=== PATIENT | male | born 1935 | race Caucasian/White ===

== ENCOUNTER 2017-04-09 13:58 | Inpatient (IN) | payer OTHER ==
[~2017-04-09] VITALS: Ht 167.6 cm; Wt 82.1 kg
[~2017-04-09 13:58] MED LIST: ASPIRIN EC81 M1 PO; TRAMADOL50 MG PO
--- NOTE | 2017-04-09 14:51 | ED GENERAL ADULT ---
History of Present Illness General Chief Complaint: General Adult Stated Complaint: HARD TO UNDERSTAND PT "CANT HOLD ANYMORE" Source: patient Exam Limitations: poor historian, language barrier, physical impairment Vital Signs & Intake/Output Vital Signs & Intake/Output Vital Signs Date Time Temp Pulse Resp B/P B/P Pulse O2 O2 Flow FiO2 Mean Ox Delivery Rate 04/09 1754 86 18 101/58 97 Nasal 2.0L Cannula 04/09 1627 76 16 130/62 100 Room Air 2.0L 04/09 1525 75 16 139/96 99 Nasal 2.0L Cannula 04/09 1517 97.1 72 20 143/74 98 Nasal 2.0L Cannula 04/09 1510 98 Room Air 04/09 1450 97.5 79 18 178/94 97 Nasal 2.0L Cannula Allergies Coded Allergies: No Known Allergies (04/09/17) Reconcile Medications Albuterol Sulfate (Ventolin Hfa) 90 MCG HFA.AER.AD 1 PUF INH TID PRN RESP. ( Reported) Amlodipine Besylate 5 MG TABLET 1 TAB PO DAILY HEART/BP (Reported) Aspirin (Ecotrin*) 81 MG TABLET.DR 1 TAB PO DAILY HEART/BLOOD (Reported) Atorvastatin Calcium 10 MG TABLET 1 TAB PO DAILY CHOLESTEROL (Reported) Cyclosporine (Restasis) 0.05 % DROPERETTE 1 GTT OU BID BOTH EYES (Reported) Dorzolamide HCl/Timolol Maleat (Dorzolamide-Timolol Eye Drops) 22.3 MG-6.8 MG/ML DROPS 1 GTT OU BID BOTH EYES (Reported) Ergocalciferol (Vitamin D2) (Vitamin D2) 50,000 UNIT CAPSULE 1 CAP PO QW SUPPLEMENT (Reported) Naproxen 500 MG TABLET 1 TAB PO BID PAIN/INFLAMMATION (Reported) Oxycodone HCl/Acetaminophen (Oxycodone-Acetaminophen 10-325) 10 MG-325 MG TABLET 1 TAB PO 4XDAILY PRN PAIN (Reported) Triage Note: PT TO ED FOR C/C OF RECTAL BLEEDING THAT STARTED AROUND 1200 TODAY WITH BM EVERY 2 MINUTES. HX OF COLON CA. ALSO COMPLAINED OF ABD PAIN. PT VERY PALE, DIAPHORETIC, WENT UNRESPONSIVE FOR SHORT PERIOD WHEN IN WAITING ROOM. PT TAKEN IMMEDIATELY TO ROOM [address] DUNLAP. GROSS BLOOD, +GUAIAC PER DR. DUNLAP. Triage Nurses Notes Reviewed? yes Onset: Abrupt Duration: day(s): Timing: recent history HPI: 81-year-old man with bright red blood per rectum. 04/09/17 81-year-old male presents to the emergency department for the sudden onset of bright red blood per rectum today. According to the patient through food prep worker; he's had multiple episodes of bright red blood per rectum today. He also has lower abdominal pain. He had a near syncopal episode in the emergency department and was diaphoretic. The onset of symptoms as abrupt, the duration was today, the severity is significant; as his symptoms required him to come to the emergency department for care. He has a history of colon cancer and is status post resection. Past History Travel History Traveled to [place] past 21 day No Medical History Any Pertinent Medical History? 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 No Review of Systems Review of Systems Constitutional: Denies: fever. EENTM: Denies: visual changes. Respiratory: Denies: short of breath. Cardiovascular: Denies: chest pain. GI: Reports: abdominal pain, diarrhea, bloody stool. Genitourinary: Reports: no symptoms. Musculoskeletal: Reports: no symptoms. Skin: Reports: no symptoms. Neurological/Psychological: Reports: no symptoms. Hematologic/Endocrine: Reports: bleeding. Physical Exam Physical Exam General Appearance: alert, awake, anxious, moderate distress Head: atraumatic, normal appearance Eyes: Bilateral: normal appearance, PERRL, EOMI. Ears, Nose, Throat: normal pharynx, normal ENT inspection Neck: normal inspection, supple, full range of motion Respiratory: normal breath sounds, chest non-tender, no respiratory distress Cardiovascular: regular rate/rhythm Peripheral Pulses: 4+ radial (R), 4+ radial (L) Gastrointestinal: soft, non-tender Rectal: heme positive stool, gross bloody stool Back: decreased range of motion Extremities: normal inspection Neurologic/Psych: no motor/sensory deficits, awake, alert, oriented x 3 Skin: pallor Core Measures ACS in differential dx? Yes No ASA d/t Active Bleeding CVA/TIA Diagnosis: No Sepsis Present: No Sepsis Focused Exam Completed? No Progress Differential Diagnoses I considered the following diagnoses in my evaluation of the patient: [ Diverticulosis, coagulopathy, internal hemorrhoids, ischemic colitis] Plan of Care: Orders Procedure Date/time Status CBC WITHOUT DIFFERENTIAL 04/11 0000 Active Nothing by Mouth 04/10 B Active TROPONIN LEVEL 04/10 0500 Active PHOSPHORUS 04/10 0500 Active MAGNESIUM 04/10 0500 Active HEPATIC FUNCTION PANEL 04/10 0500 Active CBC WITHOUT DIFFERENTIAL 04/10 0500 Active CALCIUM 04/10 0500 Active BASIC ELECTROLYTES PLUS BUN&CR 04/10 0500 Active EKG 04/10 0500 Active LACTIC ACID 04/09 2120 Active TROPONIN LEVEL 04/09 2100 Active EKG 04/09 2100 Active BLOOD PRODUCT PICKUP 04/09 2043 Active Change service to 04/09 1951 Active VRE ACTIVE SURVIELLANCE 04/09 191 Active ACTIVE SURVEILLANCE NARES 04/09 1914 Active BLOOD PRODUCT PICKUP 04/09 1828 Active BLOOD PRODUCT PICKUP 04/09 1827 Active LEUKOCYTE POOR (PACKED CELLS) 04/09 1822 Active URINALYSIS 04/09 1821 Active LACTIC ACID 04/09 1820 Active Change service to 04/09 1818 Active CBC WITHOUT DIFFERENTIAL 04/09 1810 Complete Code Status 04/09 1809 Active LEUKOCYTE POOR (PACKED CELLS) 04/09 1755 Active Pathway - chart 04/09 1750 Active Patient Data 04/09 1739 Active ED Holding Orders 04/09 1738 Active Admit to inpatient 04/09 1738 Active Vital Signs 04/09 1738 Active Code Status 04/09 1738 Complete RAPID VIRAL INFLUENZA A 04/09 1653 Complete OXYGEN SETUP (GEN) 04/09 1453 Active Telemetry/Stock Taker 04/09 1453 Active TROPONIN LEVEL 04/09 1452 Complete PROTHROMBIN TIME 04/09 1452 Complete COMPREHENSIVE METABOLIC PANEL 04/09 1452 Complete CBC WITHOUT DIFFERENTIAL 04/09 1452 Complete EKG 04/09 1452 Active TYPE & SCREEN (NOT X-MATCH) 04/09 1452 Active EKG 04/09 1447 Active VTE Mechanical Prophylaxis 04/09 UNK Active Vital Signs 04/09 UNK Active MISTAKE 04/09 UNK Active Precautions 04/09 UNK Active Nursing Misc 04/09 UNK Active Intake & Output 04/09 UNK Active ECHOCARDIOGRAM 04/09 UNK Active Current Medications Sig/Mark Start time Last Medication Dose Stop Time Status Admin Atorvastatin Calcium 10 MG 1700 04/10 1700 CAN (Lipitor) Pantoprazole Sodium 40 MG DAILY 04/10 1000 UNVr (Protonix) Cyclosporine 1 GTT Q12 04/09 2200 AC (Restasis Ophth Emulsion) Dorzolamide HCl 1 GTT BID 04/09 2200 UNVr (Trusopt 2% 10 ML) Sodium Chloride 1,000 ML Q8H 04/09 1915 AC (Normal Saline 0.9%) Albuterol Sulfate 1 PUF TID PRN 04/09 1900 AC (Ventolin) Laboratory Tests 04/09/172034: Troponin I Pending 04/09/172034: Lactic Acid Pending 04/09/17 182: CBC w Diff NO MAN DIFF REQ, RBC 3.06 L, MCV 97.2 H, MCH 32.1 H, MCHC 33.1, RDW 14.2, MPV 8.2, Gran % 80.2 H, Lymphocytes % 10.5 L, Monocytes % 7.8, Eosinophils % 1.3, Basophils % 0.2, Absolute Granulocytes 13.7 H, Absolute Lymphocytes 1.8, Absolute Monocytes 1.3 H, Absolute Eosinophils 0.2, Absolute Basophils 0 04/09/17 1540: Anion Gap 8, Estimated GFR > 60, BUN/Creatinine Ratio 35.5 H, Glucose 87, Calcium 7.7 L, Total Bilirubin 0.5, AST 14 L, ALT 37, Alkaline Phosphatase 36, Troponin I < 0.01, Total Protein 4.8 L, Albumin 2.7 L, Globulin 2.1, Albumin/ Globulin Ratio 1.3, PT 11.9, INR 1.13 04/09/17 1453: CBC w Diff MAN DIFF ORDERED, RBC 4.33 L, MCV 96.9 H, MCH 31.8 H, MCHC 32.9 L , RDW 15.0 H, MPV 8.3, Gran % 80.8 H, Lymphocytes % 13.2 L, Monocytes % 4.8, Eosinophils % 1.2, Basophils % 0, Absolute Granulocytes 13.3 H, Segmented Neutrophils 76 H, Band Neutrophils 3, Absolute Lymphocytes 2.2, Lymphocytes 9 L, Monocytes 6, Absolute Monocytes 0.8 H, Eosinophils 3, Absolute Eosinophils 0.2, Absolute Basophils 0, Metamyelocytes 2 H, Myelocytes 1 H, Platelet Estimate VERIFIED BY SMEAR, Anisocytosis 1+ Microbiology 04/09 2019 UPPER RESP: Surveillance Culture - RECD 04/09 2019 GI: Surveillance Culture - RECD 04/09 1700 NASOPHARYN: Influenza Virus A & B Rapid Smear - COMP Initial ED EKG: NSR, nonspecific ST T wave chg Departure Departure Disposition: STILL A PATIENT Condition: Stable Clinical Impression Primary Impression: GI bleed Secondary Impressions: Near syncope Referrals: Cesar DWYER,Cameron Grayson (PCP/Family) Departure Forms: Customer Survey General Discharge Information Comments 04/09/17 6:17 PM 81-year-old male presented to the emergency department for near-syncope. Initial EKG revealed normal sinus rhythm no ischemic changes. His initial vital signs of been stable. He was guaiac positive. Dr. Riddle was paged. He agrees with the plan of care and admission to the ICU. Admission Note Spoke With: Ciera Cheng MD Documentation of Exam: Documentation of any treatments & extenuating circumstances including Concerns Regarding Discharge (functional status, medication knowledge or non-compliance, living conditions, etc.) that warrant an admission rather than observation: [The patient was admitted to the ICU for IV fluids, blood transfusion, cardiac monitoring, GI consultation, ICU level care] He was placed on oxygen in the ED and a tobacco curer.IV fluids were given. GI was notified. 2 units of packed red blood cells were given. He was transferred to the ICU. Critical Care Note Critical Care Note Critical Care Time: 30-74 min
[2017-04-09 15:01] LABS: ABSOLUTE BASOPHIL COUNT 0 /CUMM (0.0-0.2); ABSOLUTE EOSINOPHIL COUNT 0.2 /CUMM (0.0-0.7); ABSOLUTE GRANULOCYTE CT 13.3 /CUMM (1.4-6.5); ABSOLUTE LYMPH COUNT 2.2 /CUMM (1.2-3.4); ABSOLUTE MONOCYTE COUNT 0.8 /CUMM (0.10-0.60); BASOPHIL % 0 % (0.0-2.0); EOSINOPHIL % 1.2 % (0-5); GRANULOCYTE % 80.8 % (42.2-75.2); MEAN CORPUSCULAR HGB 31.8 PG (27.0-31.0); MEAN CORPUSCULAR HGB CONC 32.9 G/DL (33.0-37.0); MEAN CORPUSCULAR VOLUME 96.9 FL (80.0-94.0); MEAN PLATELET VOLUME 8.3 FL (7.4-10.4); PLATELET COUNT 340 /CUMM (130-400); RED BLOOD CELL CT 4.33 /CUMM (4.70-6.10); WHITE BLOOD CELL COUNT 16.5 /CUMM (4.8-10.8)
[2017-04-09 16:15] LABS: PT 11.9 SEC (9.4-12.5)
[2017-04-09] MEDS ORDERED: VITAMIN D250000 UNIT PO (16:17)
[2017-04-09] MEDS ORDERED: NAPROXEN500 M2 PO (16:18)
[2017-04-09] MEDS ORDERED: CLARITHROMYCIN500 M2 PO (16:18)
[2017-04-09] MEDS ORDERED: ATORVASTATIN CA10 M1 PO (16:18)
[2017-04-09] MEDS ORDERED: AMLODIPINE BESYL5 M1 PO (16:18)
[2017-04-09] MEDS ORDERED: VENTOLIN HFA18 GM INH (16:19)
[2017-04-09] MEDS ORDERED: OXYCODONE-ACET1 EAC1 PO (16:21)
[2017-04-09] MEDS ORDERED: DORZOLAMIDE-TIM10 ML OU (16:22)
[2017-04-09] MEDS ORDERED: RESTASIS1 EACH OU (16:22)
--- NOTE | 2017-04-09 16:23 | RADIOLOGY REPORT ---
EXAMINATION: XR PORTABLE CHEST CLINICAL INFORMATION: Syncope COMPARISON: 08/03/2014 TECHNIQUE: Portable frontal view of the chest was obtained. FINDINGS: Lungs are symmetrically expanded and clear. No pulmonary edema, consolidation, pleural effusion or pneumothorax. Cardiac silhouette is normal in size. The aortic arch is uncoiled and appears prominent (i.e., possible ectasia or aneurysmal dilatation of the aorta). The visualized bones are intact. IMPRESSION: 1. No acute pulmonary disease. 2. The aortic arch is uncoiled and is possibly dilated, but an accurate measurement of aorta size cannot be provided.
--- NOTE | 2017-04-09 17:41 | History & Physical ---
See Addendum Lashell García 04/09/17 3350: General Information and HPI MD Statement: I have seen and personally examined MIKA DOUGLASS and documented this H&P. The patient is a 81 year old M who presented with a patient stated chief complaint of [bright red blood per rectum]. Source of Information: patient, old records Exam Limitations: language barrier History of Present Illness: 81-year-old male with a past medical history of ? colon cancer 7 years ago ( status post resection), hypertension, hyperlipidemia, vitamin D insufficiency who presented to the ER with chief complaint of bright red bleeding per rectum that apparently started today. According to the patient he was in his usual state of health until this morning when around 11:30 AM he had an episode of upper abdominal pain that he describes as crampy in nature after which he had a bloody bowel movement. According to the patient he's had almost 10-15 episodes of bloody bowel movements since noon today. Denies any clots. He states that the bowel movements are associated with crampy abdominal pain that he grades as an 8 out of 10. He also endorses dizziness and lightheadedness every time he gets these episodes. He denies any chest pain, shortness of breath, nausea, hematemesis, fever, chills, recent history of weight loss. He's never had these episodes before. Of note he lives by himself and drove him self to the ED. Reportedly he had a near-syncopal episode in the ED and was diaphoretic. Apparently patient has a history of colon cancer ~ questionable 7 years ago and underwent surgery. Speaking with his son, reveals that he's not even sure if it was cancer to begin with. Patient is on a baby aspirin and is on NSAIDs for pain. According to the son, the patient saw his ? PCP this AM and was told that everything is fine and to go home. When Mr. Douglass returned home, he had 10-15 ? episodes of frankie bloody bowel movements. Patient denies any previous history of GI bleed. Allergies/Medications Allergies: Coded Allergies: No Known Allergies (04/09/17) Home Med list Albuterol Sulfate (Ventolin Hfa) 90 MCG HFA.AER.AD 1 PUF INH TID PRN RESP. ( Reported) Amlodipine Besylate 5 MG TABLET 1 TAB PO DAILY HEART/BP (Reported) Aspirin (Ecotrin*) 81 MG TABLET.DR 1 TAB PO DAILY HEART/BLOOD (Reported) Atorvastatin Calcium 10 MG TABLET 1 TAB PO DAILY CHOLESTEROL (Reported) Cyclosporine (Restasis) 0.05 % DROPERETTE 1 GTT OU BID BOTH EYES (Reported) Dorzolamide HCl/Timolol Maleat (Dorzolamide-Timolol Eye Drops) 22.3 MG-6.8 MG/ML DROPS 1 GTT OU BID BOTH EYES (Reported) Ergocalciferol (Vitamin D2) (Vitamin D2) 50,000 UNIT CAPSULE 1 CAP PO QW SUPPLEMENT (Reported) Naproxen 500 MG TABLET 1 TAB PO BID PAIN/INFLAMMATION (Reported) Oxycodone HCl/Acetaminophen (Oxycodone-Acetaminophen 10-325) 10 MG-325 MG TABLET 1 TAB PO 4XDAILY PRN PAIN (Reported) Compliance With Home Meds: UNKNOWN Past History Travel History Traveled to [place] past 21 day No Medical History Neurological: NONE EENT: NONE Cardiovascular: hyperlipidemia Respiratory: asthma Gastrointestinal: COLON CA Hepatic: NONE Renal: NONE Musculoskeletal: NONE Psychiatric: NONE Endocrine: NONE Blood Disorders: NONE Cancer(s): colon/rectal cancer 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 Home Who Do You Live With? self Smoking Status: Former Smoker ETOH Use: denies use Illicit Drug Use: denies illicit drug use Functional Ability ADLs Independent: dressing, eating, toileting, bathing. Ambulation: independent Review of Systems Review of Systems Constitutional: Reports: diaphoresis. Denies: chills, fever, weakness. EENTM: Denies: visual changes. Cardiovascular: Reports: syncope. Denies: chest pain, orthopena, palpitations. Respiratory: Denies: cough, hemoptysis, short of breath, wheezing. GI: Reports: abdominal pain, bloody stool, changes in stool. Denies: nausea, vomiting. Genitourinary: Denies: dysuria, frequency. Musculoskeletal: Reports: no symptoms. Neurological/Psychological: Denies: headache, numbness, tingling, tremors. Exam & Diagnostic Data Last 24 Hrs of Vital Signs/I&O Vital Signs Date Time Temp Pulse Resp B/P B/P Pulse O2 O2 Flow FiO2 Mean Ox Delivery Rate 04/09 1754 86 18 101/58 97 Nasal 2.0L Cannula 04/09 1627 76 16 130/62 100 Room Air 2.0L 04/09 1525 75 16 139/96 99 Nasal 2.0L Cannula 04/09 1517 97.1 72 20 143/74 98 Nasal 2.0L Cannula 04/09 1510 98 Room Air 04/09 1450 97.5 79 18 178/94 97 Nasal 2.0L Cannula Intake & Output 04/09 1600 04/09 0800 04/09 0000 Intake Total 1000 Output Total 1 Balance 999 Intake, IV 1000 Output, Stool 1 Patient 168 lb Weight Physical Exam General Appearance Alert, Oriented X3, Cooperative, No Acute Distress HEENT Atraumatic, EOMI, very dry muocus membranes, left pupil dilated and distorted Light reflex normal in right eye Neck Supple, No JVD, No LAD Cardiovascular Normal S1, Normal S2, tahcycardic; faint heart sounds Lungs Clear to Auscultation, Normal Air Movement Abdomen Normal Bowel Sounds, Soft, tenderness to palpation in right upper quadrant Neurological Normal Speech, Strength at 5/5 X4 Ext, Normal Tone, Sensation Intact, Cranial Nerves 3-12 NL, Reflexes 2+ Extremities b/l 1+ edema in lower extremities, with bruise along the medial aspect of his left ankle Last 24 Hrs of Labs/Miguel: Laboratory Tests 04/09/17 1826: CBC w Diff NO MAN DIFF REQ, RBC 3.06 L, MCV 97.2 H, MCH 32.1 H, MCHC 33.1, RDW 14.2, MPV 8.2, Gran % 80.2 H, Lymphocytes % 10.5 L, Monocytes % 7.8, Eosinophils % 1.3, Basophils % 0.2, Absolute Granulocytes 13.7 H, Absolute Lymphocytes 1.8, Absolute Monocytes 1.3 H, Absolute Eosinophils 0.2, Absolute Basophils 0 04/09/17 1540: Anion Gap 8, Estimated GFR > 60, BUN/Creatinine Ratio 35.5 H, Glucose 87, Calcium 7.7 L, Total Bilirubin 0.5, AST 14 L, ALT 37, Alkaline Phosphatase 36, Troponin I < 0.01, Total Protein 4.8 L, Albumin 2.7 L, Globulin 2.1, Albumin/ Globulin Ratio 1.3, PT 11.9, INR 1.13 04/09/17 1453: CBC w Diff MAN DIFF ORDERED, RBC 4.33 L, MCV 96.9 H, MCH 31.8 H, MCHC 32.9 L , RDW 15.0 H, MPV 8.3, Gran % 80.8 H, Lymphocytes % 13.2 L, Monocytes % 4.8, Eosinophils % 1.2, Basophils % 0, Absolute Granulocytes 13.3 H, Segmented Neutrophils 76 H, Band Neutrophils 3, Absolute Lymphocytes 2.2, Lymphocytes 9 L, Monocytes 6, Absolute Monocytes 0.8 H, Eosinophils 3, Absolute Eosinophils 0.2, Absolute Basophils 0, Metamyelocytes 2 H, Myelocytes 1 H, Platelet Estimate VERIFIED BY SMEAR, Anisocytosis 1+ Microbiology 04/09 1913 UPPER RESP: Surveillance Culture - COLB 04/09 1913 GI: Surveillance Culture - COLB 04/09 1699 NASOPHARYN: Influenza Virus A & B Rapid Smear - COMP Diagnostic Data EKG Results NSR, HR: 72; normal axis, no S-T changes CXR Results FINDINGS: Lungs are symmetrically expanded and clear. No pulmonary edema, consolidation, pleural effusion or pneumothorax. Cardiac silhouette is normal in size. The aortic arch is uncoiled and appears prominent (i.e., possible ectasia or aneurysmal dilatation of the aorta). The visualized bones are intact. IMPRESSION: 1. No acute pulmonary disease. 2. The aortic arch is uncoiled and is possibly dilated, but an accurate measurement of aorta size cannot be provided. Assessment/Plan Assessment: 81-year-old male with a past medical history of ? colon cancer status post resection (7 years ago), hypertension, hyperlipidemia, vitamin D insufficiency who presented to the ER with chief complaint of bright red bleeding per rectum that started today. He also had a near-syncopal episode in the ED and was diaphoretic. Vitals at the time of admission blood pressure 130/62, respiratory rate of 16, pulse 76, afebrile saturating 99% on 2 L of oxygen via nasal cannula. Labs pertinent for leukocytosis with a white blood cell count 16,000, macrocytic anemia with an H&H of 13.8/42.0 and an MCV of 96.9 with a platelet count 340, 000. Serum chemistries reveal a sodium of 142, potassium 3.9, bicarbonate of 27 , anion gap of 8, BUN 39 and creatinine of 1.1. Serum glucose 87. Calcium is 7.7 with an albumin of 2.7. First set of troponin <0.01. LFTs unremarkable with a temperature 0.5, AST/L2 14/37, alkaline phosphatase of 36. INR 1.13. Chest x-ray showed no acute pulmonary disease, aortic arch is uncoiled and its possibly dilated questioning aneurysmal dilatation. In the ER he received a bolus of normal saline (1.0 liter). EKG revealed NSR, HR: 72, normal axis, no ST-T changes. Assessment and Plan: Admit patient to ICU as during exam he had 5th epsidoe of frankie bleeding from rectum (approx about 200mls). No clots seen, patient also dropped his blood pressure to 90/57 from 139/96, and was tachycardic to 120 and felt diaphoretic when he had the episode. #Lower GI bleed most likely 2/2 ischemic colitis versus angiodysplasia (painful bleeding) vs diverticulitis - Maintain 2 large bore peripheral IVs. - Transfuse with 2 units of PRBC stat and a bolus of NS 1.0 liters with maintanence NS @ 125ml/hr - CTA of abdomen and pelvis to r/o ischemia, evidence of diverticular bleed. - GI / IRconsult pending results of the CTA - Hold ASA, NSAID's - F/U CBC q4-6 hrs. - Vitlas q1 hrs. - Call GI stat if gets hemodynaically unstable. - F/U LA # Near Syncope - Most likley 2/2 volume depletion from ABLA - Check osrthostats, hydrate with fluids. - Maintain on fall precautions. - R/O ACS with trop and EKG x3, and echo to r.o structural valvular abnormalities or any RWMA. # HTN - Hold BP meds fow now. # HLP - Hold statin given NPO stauts - DVT Prophylaxis - ALPs given bleeding - Diet - NPO for now in veiw of IR embolization or colosnocpy - Code Status - Full Code. - Spoke with patient's son Ross and updated him (cell phone - ) As Ranked By This Provider Problem List: 1. Lower GI bleed Core Measures/Misc (11/30) Acute Coronary Syndrome ACS Diagnosis: No Congestive Heart Failure Congestive Heart Failure Diagnosis No Cerebrovascular Accident CVA/TIA Diagnosis: No VTE (View Protocol) VTE Risk Factors Age>40 No Mechanical VTE Prophylaxis d/t N/A MechProphylax Ordered No VTE Pharm Prophylaxis d/t Bleeding (Active) Sepsis (View protocol) Sepsis Present: No Resident Review Statement Resident Statement: admitted by resident Rony DWYER, [facility] 04/09/178: Attending MD Review Statement Attending Statement Attending MD Statement: examined this patient, discuss w/resident/PA/[employer] ARCHITECT, agreed w/resident/PA/[employer] ARCHITECT, reviewed images, amended to note Attending Assessment/Plan: 81 yo Portugese speaking M with h/o HTN, glaucoma, blind in left eye, asthma, ? rectal cancer vs polyp s/p ?resection (7 yrs ago), is here for evaluation of sudden onset multiple episodes of bright red blood per rectum preceded by abdominal cramping. Blood clots+. Patient reports feeling dizzy, lightheaded. While in the ER waiting room, patient had a near-syncopal episode, was pale and diaphoretic. He had about 5-6 episodes of BRBPR while in the ER. He has not had similar episodes in the past. He denies chest pain, palpitations or dyspnea. He has no underlying cardiac history. He is on aspirin and takes naproxen for pain. He denies heartburn, melena or hematemesis. He most likely had his last colonoscopy 7 yrs ago but details are not available. Of note, patient was treated with clarithromycin and medrol dose pack (Mar 31) for ?possible bronchitis/ pneumonia. Vitals: afebrile, HR 70-80's, sats 99% on 2L, BP 139/96 --> 101/58 --> 94/54 --> being resuscitated with IV fluids and PRBC. Exam: AAO, pale, diaphoretic, sitting comfortably on the bed. Dry mucous membranes, Neck supple, Skin warm and dry, Chest b/l scattered rhonchi anteriorly, clear posteriorly, Heart S1S2 regular, ?murmur, Abd soft, right upper quadrant tenderness+, BS+. Labs: WBC 16.5, H/H 13.8/42 --> 9.8/29.7, bands 3, INR 1.13, bun 39, creat 1.1, lactic acid 2.0, Ca 7.7, trop neg. CXR: lungs clear, aortic arch is uncoiled and possibly dilated ?ectasia or aneurysmal dilatation of aorta. EKG: sinus rhythm, no acute changes. Assessment and plan: 1. Lower GI bleed most likely diverticular. Rule out angiodysplasia, colon cancer, polyp or ischemic colitis 2. Acute blood loss anemia 3. Near syncopal episode 4. Hypotension from acute blood loss and hypovolemia 5. Leukocytosis is reactive or due to recent steroid use. No focal signs of infection. 6. History of rectal cancer vs polyp 7. RUL lung nodule - needs outpatient follow up - Admit to ICU - TRC nebs - Vitals Q 1 hour - Monitor bleeding DE - Check orthostats - Type and cross match - CBC Q6 hourly, goal Hb > 8.0 - 2 large bore peripheral IV's - Transfuse 3 units PRBC stat, keep 2 on hold - IV fluid 2 L bolus, start maintenance 125/hr - CTA abdomen/ pelvis to localize site of bleeding. If positive would need IR embolization. - CTA chest to assess for aortic aneurysm - GI consult - CRCU consult in AM - Serial EKG and troponin to rule out ACS, Echo - If troponin elevated, consider Cardio consult - Hold aspirin, naproxen and other NSAIDs - Hold amlodipine and other BP meds - Check lactic acid, trend - NPO, ice chips ok - Check urinalysis, rule out infection. GI ppx IV protonix DVT Alps Full code (Contact patient's son - Ross [phone]) Update: CTA of abd/pelvis did not show any active bleeding point for IR embolization. So plan is for Golytely prep overnight and colonoscopy by GI in AM. TTS > 55 mins
--- NOTE | 2017-04-09 18:23 | Admission Certification ---
Admission Certification Certification Statement - As attending physician, I certify that at the time of - admission, based on clinical presentation, severity of - symptoms, need for further diagnostic testing and - therapeutic interventions, and risk of adverse outcomes - without in-hospital treatment, in my clinical assessment, - this patient requires an acute hospital stay for a minimum - of two nights or longer. I have also considered psychsocial - factors such as support system, advanced age, financial - issues, cognitive issues, and failed out-patient treatments, - past re-admission history, safety of patient, and lack of - compliance as applicable. Specific rationale supporting this admission is: Lower GI bleed, acute blood loss anemia.
[2017-04-09 18:52] LABS: ABSOLUTE BASOPHIL COUNT 0 /CUMM (0.0-0.2); ABSOLUTE EOSINOPHIL COUNT 0.2 /CUMM (0.0-0.7); ABSOLUTE GRANULOCYTE CT 13.7 /CUMM (1.4-6.5); ABSOLUTE LYMPH COUNT 1.8 /CUMM (1.2-3.4); ABSOLUTE MONOCYTE COUNT 1.3 /CUMM (0.10-0.60); BASOPHIL % 0.2 % (0.0-2.0); EOSINOPHIL % 1.3 % (0-5); GRANULOCYTE % 80.2 % (42.2-75.2); MEAN CORPUSCULAR HGB 32.1 PG (27.0-31.0); MEAN CORPUSCULAR HGB CONC 33.1 G/DL (33.0-37.0); MEAN CORPUSCULAR VOLUME 97.2 FL (80.0-94.0); MEAN PLATELET VOLUME 8.2 FL (7.4-10.4); PLATELET COUNT 320 /CUMM (130-400); RBC DISTRIBUTION WIDTH 14.2 % (11.5-14.5); WHITE BLOOD CELL COUNT 17.1 /CUMM (4.8-10.8)
[2017-04-09 19:02] LABS: HEMATOCRIT 29.7 % (42-52); RED BLOOD CELL CT 3.06 /CUMM (4.70-6.10)
--- NOTE | 2017-04-09 20:05 | CT SCAN REPORT ---
EXAMINATION: CT CHEST, ABDOMEN AND PELVIS WITH CONTRAST CLINICAL INFORMATION: Lower GI bleed. Pain. Concern for ischemic colitis or aortic aneurysm. COMPARISON: Same day chest radiograph. TECHNIQUE: Contiguous axial thin section helical images of the chest, abdomen and pelvis were performed following the administration of 120 mL of intravenous Optiray 350. The data set was reformatted in the coronal and sagittal planes and reviewed on an independent workstation. DLP: 1920 mGy-cm. FINDINGS: The heart is of normal size. There is no pericardial effusion. There is neither mediastinal, hilar nor axillary lymphadenopathy. There are no chest wall masses. There is a small hiatal hernia. There is mural plaque identified within the aortic arch. There is no aortic aneurysm demonstrable. The ascending thoracic aorta measures 3.7 cm in greatest sagittal AP dimension. There are no pulmonary arterial filling defects. There is calcified plaque within the infrarenal abdominal aorta. Review of lung windows demonstrates that there are neither pleural effusions nor pneumothoraces. There are no consolidations. Within the inferior right upper lobe on image [id number], there is a 2 mm benign appearing calcified pulmonary nodule. There are a few blebs present within each apex. The liver is of normal size and attenuation without focal lesions nor intrahepatic biliary ductal dilation. The patient is status post cholecystectomy. Surgical clips are present. The spleen, pancreas, adrenal glands are unremarkable. Both kidneys are of normal size and attenuation without hydronephrosis or nephrolithiasis. Following the administration of IV contrast, prompt symmetric nephrograms are displayed. There are bilateral renal cysts. There is bilateral perinephric stranding. There is no abdominal free fluid. There is neither mesenteric nor retroperitoneal lymphadenopathy. Normal unopacified loops of small and large bowel are identified. A normal appendix is identified. There is no pelvic free fluid. The urinary bladder is unremarkable. There is neither pelvic nor inguinal lymphadenopathy. Bone windows: Neither sclerotic nor lytic bone lesions are identified. Air is disc height loss at L4/L5. IMPRESSION: No aortic aneurysm demonstrable. Scattered areas of noncalcified and calcified plaque. No evidence for acute thoracic, abdominal nor pelvic inflammatory or infectious processes. Hiatal hernia. Status post cholecystectomy. 3-D reconstructions have not been performed at this time. This examination will be reviewed by an Interventional Radiologist and an addendum place.
[2017-04-09 21:00] VITALS: BP 94/54
--- NOTE | 2017-04-09 21:34 | Event Note ---
Event Note Event Note: CTA of abdomen Pelvis did not show evidence of ischemia or active bleeding after Dr. Riddle and I personally spoke with Dr. Bal. Plan is to do serial monitoring of CBC q4-6 hrs, transfuse with PRBCs and bowel prep with GoLYTELY. Patient is NPO excpet for ice chips in anticipation of colonoscopy tmrw. Please notify GI stat if patient becomes hemodynamically unstable and starts bleeding actively. Plan discussed with attending Dr. Uribe and Dr. Riddle.
[2017-04-09 22:00] VITALS: BP 89/55
[2017-04-09 23:00] VITALS: BP 82/40
[2017-04-10 01:17] LABS: ABSOLUTE BASOPHIL COUNT 0 /CUMM (0.0-0.2); ABSOLUTE EOSINOPHIL COUNT 0.2 /CUMM (0.0-0.7); ABSOLUTE GRANULOCYTE CT 12.8 /CUMM (1.4-6.5); ABSOLUTE LYMPH COUNT 1.6 /CUMM (1.2-3.4); ABSOLUTE MONOCYTE COUNT 1.1 /CUMM (0.10-0.60); BASOPHIL % 0.1 % (0.0-2.0); GRANULOCYTE % 82.1 % (42.2-75.2); HEMATOCRIT 31.7 % (42-52); MEAN CORPUSCULAR HGB 31.2 PG (27.0-31.0); MEAN CORPUSCULAR HGB CONC 33.7 G/DL (33.0-37.0); MEAN CORPUSCULAR VOLUME 92.8 FL (80.0-94.0); MEAN PLATELET VOLUME 8.6 FL (7.4-10.4); PLATELET COUNT 197 /CUMM (130-400); RBC DISTRIBUTION WIDTH 15.6 % (11.5-14.5); RED BLOOD CELL CT 3.42 /CUMM (4.70-6.10); WHITE BLOOD CELL COUNT 15.5 /CUMM (4.8-10.8)
[2017-04-10 07:47] LABS: ABSOLUTE BASOPHIL COUNT 0 /CUMM (0.0-0.2); ABSOLUTE EOSINOPHIL COUNT 0.2 /CUMM (0.0-0.7); ABSOLUTE GRANULOCYTE CT 12.3 /CUMM (1.4-6.5); ABSOLUTE LYMPH COUNT 1.4 /CUMM (1.2-3.4); BASOPHIL % 0.1 % (0.0-2.0); GRANULOCYTE % 82.8 % (42.2-75.2); HEMATOCRIT 32.8 % (42-52); MEAN CORPUSCULAR HGB 30.9 PG (27.0-31.0); MEAN CORPUSCULAR HGB CONC 33.6 G/DL (33.0-37.0); MEAN CORPUSCULAR VOLUME 91.9 FL (80.0-94.0); MEAN PLATELET VOLUME 8.8 FL (7.4-10.4); PLATELET COUNT 156 /CUMM (130-400); RBC DISTRIBUTION WIDTH 15.7 % (11.5-14.5); RED BLOOD CELL CT 3.57 /CUMM (4.70-6.10); WHITE BLOOD CELL COUNT 14.9 /CUMM (4.8-10.8)
--- NOTE | 2017-04-10 07:51 | PN- Resident CRCU ---
Objective Vital Signs & I&O Last 8 Hrs of Vitals and I&O: Intake & Output 04/10 0800 Intake Total 3550 Output Total 1375 Balance 2175 Intake, Blood 350 Product Intake, IV 1400 Intake, Oral 1800 Output, Stool 975 Output, Urine 400 Exam General Appearance: no apparent distress
[2017-04-10 08:00] VITALS: BP 108/60
--- NOTE | 2017-04-10 08:22 | Cons- CRCU ---
Mars Medina 04/10/17 0822: General Information and HPI Consulting Request Date of Consult: 04/10/17 Requested By: Dr. 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 Asthma/COPD, HTN came in to the ER w/ a chief concern of brbpr that began on the day of presentation. While he was in the ER, he continued to have several episodes of brbpr with associated dizziness, and abdominal discomfort(cramping pain, as per the pt). He also has a h/o frequent NSAID use for arthritis. At the time of presentation, he was afebrile, and HR ranged around 80s, but his BP dropped precipituously, requiring several units of PRBC transfusion. There was also a drop in H&H from the time of presentation, 13.5-->9.8 in a few hours, and unfortunately he only received one bag of NS while in the ED. CTA which did not reveal any obvious bleeding source. GI was consulted who recemmended prepping for colonoscopy in the am, while stabilizing the pt. At that time, diverticular bleed was considered in differential. Ischemic bowel was ruled out. He was transfered to the ICU, and was watched closely. He did not have any chest pain, shortness of breath, or palpitations. No pedal edema, no urinary difficulties. Allergies/Medications Allergies: Coded Allergies: No Known Allergies (04/09/17) Home Med List: Albuterol Sulfate (Ventolin Hfa) 90 MCG HFA.AER.AD 1 PUF INH TID PRN RESP. ( Reported) Amlodipine Besylate 5 MG TABLET 1 TAB PO DAILY HEART/BP (Reported) Aspirin (Ecotrin*) 81 MG TABLET.DR 1 TAB PO DAILY HEART/BLOOD (Reported) Atorvastatin Calcium 10 MG TABLET 1 TAB PO DAILY CHOLESTEROL (Reported) Cyclosporine (Restasis) 0.05 % DROPERETTE 1 GTT OU BID BOTH EYES (Reported) Dorzolamide HCl/Timolol Maleat (Dorzolamide-Timolol Eye Drops) 22.3 MG-6.8 MG/ML DROPS 1 GTT OU BID BOTH EYES (Reported) Ergocalciferol (Vitamin D2) (Vitamin D2) 50,000 UNIT CAPSULE 1 CAP PO QW SUPPLEMENT (Reported) Naproxen 500 MG TABLET 1 TAB PO BID PAIN/INFLAMMATION (Reported) Oxycodone HCl/Acetaminophen (Oxycodone-Acetaminophen 10-325) 10 MG-325 MG TABLET 1 TAB PO 4XDAILY PRN PAIN (Reported) Past History Travel History Traveled to [place] past 21 day No Medical History Neurological: NONE EENT: NONE Cardiovascular: hyperlipidemia Respiratory: asthma Gastrointestinal: COLON CA Hepatic: NONE Renal: NONE Musculoskeletal: NONE Psychiatric: NONE Endocrine: NONE Blood Disorders: NONE Cancer(s): colon/rectal cancer 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 Home Who Do You Live With? self Smoking Status: Former Smoker ETOH Use: denies use Illicit Drug Use: denies illicit drug use Functional Ability ADLs Independent: dressing, eating, toileting, bathing. Ambulation: independent Exam & Diagnostic Data Last 24 Hrs of Vital Signs/I&O Vital Signs Date Time Temp Pulse Resp B/P B/P Pulse O2 O2 Flow FiO2 Mean Ox Delivery Rate 04/10 0800 97 Nasal 2.0L Cannula 04/10 0800 98.8 78 18 108/60 97 Nasal 2.0L Cannula 04/10 0418 99 Nasal 2.0L Cannula 04/10 0000 99 Nasal 2.0L Cannula 04/09 2300 97.4 79 18 82/40 99 Nasal 2.0L Cannula 04/09 2200 99 Nasal 2.0L Cannula 04/09 2200 97.3 80 16 89/55 96 04/09 2100 96.4 86 18 94/54 95 Nasal 2.0L Cannula 04/09 1754 86 18 101/58 97 Nasal 2.0L Cannula 04/09 1627 76 16 130/62 100 Room Air 2.0L 04/09 1525 75 16 139/96 99 Nasal 2.0L Cannula 04/09 1517 97.1 72 20 143/74 98 Nasal 2.0L Cannula 04/09 1510 98 Room Air 04/09 1450 97.5 79 18 178/94 97 Nasal 2.0L Cannula Intake & Output 04/10 1600 04/10 0800 04/10 0000 Intake Total 3550 1700 Output Total 1375 250 Balance 2175 1450 Intake, Blood 350 700 Product Intake, IV 1400 1000 Intake, Oral 1800 Number 6 Bowel Movements Output, Stool 975 Output, Urine 400 250 Patient 178 lb Weight Physical Exam General Appearance: well developed/nourished, no apparent distress, alert, awake , comfortable Head: atraumatic, normal appearance Eyes: Bilateral: PERRL, EOMI. Ears, Nose, Throat: normal pharynx, normal ENT inspection Neck: normal inspection, supple Respiratory: normal breath sounds Cardiovascular: regular rate/rhythm, edema Peripheral Pulses: 4+ radial (R), 4+ radial (L), 4+ dorsalis pedis (R), 4+ dorsalis pedis (L) Gastrointestinal: normal bowel sounds, soft, tenderness Rectal: black stool Extremities: normal inspection, normal capillary refill, normal range of motion, no edema Neurologic/Psych: no motor/sensory deficits, awake, alert, oriented x 3, normal gait, normal mood/affect Cranial Nerves: normal hearing, normal speech, PERRL Last 48 Hrs of Labs/Miguel: Laboratory Tests 04/10/17 0636: Anion Gap 8, Estimated GFR > 60, BUN/Creatinine Ratio 33.0 H, Calcium 6.7 L, Phosphorus 3.2, Magnesium 1.7, Total Bilirubin 0.7, Direct Bilirubin 0.2, AST 16 L, ALT 36, Alkaline Phosphatase 35, Troponin I 0.02, Total Protein 3.6 L, Albumin 2.0 L, CBC w Diff NO MAN DIFF REQ, RBC 3.57 L, MCV 91.9, MCH 30.9, MCHC 33.6, RDW 15.7 H, MPV 8.8, Gran % 82.8 H, Lymphocytes % 9.2 L, Monocytes % 6.9, Eosinophils % 1.0, Basophils % 0.1, Absolute Granulocytes 12.3 H, Absolute Lymphocytes 1.4, Absolute Monocytes 1.0 H, Absolute Eosinophils 0.2, Absolute Basophils 0 04/10/17 0301: Lactic Acid 1.9 04/10/17 0110: Urine Color YEL, Urine Clarity CLEAR, Urine pH 5.5, Ur Specific [place] 1.020, Urine Protein TRACE H, Urine Ketones NEG, Urine Nitrite NEG, Urine Bilirubin NEG, Urine Urobilinogen 0.2, Ur Leukocyte Esterase NEG, Ur Microscopic SEDIMENT EXAMINED, Urine RBC RARE, Urine WBC 1-3 H, Urine Mucus FEW, Urine Hemoglobin NEG, Urine Glucose NEG 04/10/17 0026: Anion Gap 5, Estimated GFR > 60, Glucose 95, Lactic Acid 2.5 H, Calcium 6.5 L, Phosphorus 3.2, Magnesium 1.8, Total Bilirubin 1.0, AST 14 L, ALT 28, Albumin 1.9 L, CBC w Diff NO MAN DIFF REQ, RBC 3.42 L, MCV 92.8, MCH 31.2 H, MCHC 33.7, RDW 15.6 H, MPV 8.6, Gran % 82.1 H, Lymphocytes % 10.0 L, Monocytes % 6.8, Eosinophils % 1.0, Basophils % 0.1, Absolute Granulocytes 12.8 H, Absolute Lymphocytes 1.6, Absolute Monocytes 1.1 H, Absolute Eosinophils 0.2, Absolute Basophils 0 04/09/172119: Lactic Acid Cancelled 04/09/172034: Troponin I 0.02 04/09/172034: Lactic Acid 2.0 04/09/17 1826: CBC w Diff NO MAN DIFF REQ, RBC 3.06 L, MCV 97.2 H, MCH 32.1 H, MCHC 33.1, RDW 14.2, MPV 8.2, Gran % 80.2 H, Lymphocytes % 10.5 L, Monocytes % 7.8, Eosinophils % 1.3, Basophils % 0.2, Absolute Granulocytes 13.7 H, Absolute Lymphocytes 1.8, Absolute Monocytes 1.3 H, Absolute Eosinophils 0.2, Absolute Basophils 0 04/09/17 1540: Anion Gap 8, Estimated GFR > 60, BUN/Creatinine Ratio 35.5 H, Glucose 87, Calcium 7.7 L, Total Bilirubin 0.5, AST 14 L, ALT 37, Alkaline Phosphatase 36, Troponin I < 0.01, Total Protein 4.8 L, Albumin 2.7 L, Globulin 2.1, Albumin/ Globulin Ratio 1.3, PT 11.9, INR 1.13 04/09/17 1453: CBC w Diff MAN DIFF ORDERED, RBC 4.33 L, MCV 96.9 H, MCH 31.8 H, MCHC 32.9 L , RDW 15.0 H, MPV 8.3, Gran % 80.8 H, Lymphocytes % 13.2 L, Monocytes % 4.8, Eosinophils % 1.2, Basophils % 0, Absolute Granulocytes 13.3 H, Segmented Neutrophils 76 H, Band Neutrophils 3, Absolute Lymphocytes 2.2, Lymphocytes 9 L, Monocytes 6, Absolute Monocytes 0.8 H, Eosinophils 3, Absolute Eosinophils 0.2, Absolute Basophils 0, Metamyelocytes 2 H, Myelocytes 1 H, Platelet Estimate VERIFIED BY SMEAR, Anisocytosis 1+ Microbiology 04/09 1700 NASOPHARYN: Influenza Virus A & B Rapid Smear - COMP Assessment/Plan Impression/Plan: Mr Douglass is a 81 year old man w/ a PMHx of possible colon cancer s/p resection 7 yrs ago, 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 Asthma/COPD, HTN came in to the ER w/ a chief concern of several episodes of brbpr associated w/ dizziness likely from a diverticular bleed. At the time of admission, vitals T 97.5, DC 79, BP 178/94-->82/40 (dropped after he had several episodes of brbpr), 97% 2L oxygen. Pertinent labs: WBC 16.5k ( increase in all cell lines likely from steroids ) Hb 13.8(04/09)-->9.8(04/09 after several episodes of brbpr),-->11.0(04/10 post transfusion x 4 PRBC) Platelets 340 K 3.8 Cl 112 Trop 0.02 x 3, w/ no EKG changes. LA 2.5-->1.9 AST 14,ALT28,INR 1.13, Alk phos 35, Protein 3.6, Alb 2.0 CXR- 1. No acute pulmonary disease.The aortic arch is uncoiled and is possibly dilated, but an accurate measurement of aorta size cannot be provided. Follow up CTA was negative for any thoracic or abdominal aneurysms. CTA abdomen showed normal unopacified loops of small and large bowel are identified. CT chest revealed an incidental finding of 2 mm benign appearing calcified pulmonary nodule. Etiology in her case is likely diverticular bleed; other causes that could be relevant in his case is a possible remission of colon cancer. Upper GI bleed is not completely ruled out since he uses NSAIDs. At this current time, his vitals are stable, and H&H is stable w/ no symptoms, and a colonoscopy could be done either in the ICU, or at the GI suite. If the coloscopy is negative, would consider a pill cam, if he has any angiodysplasias that we might have missed on colonoscopy. His normal liver function including synthetic function rules out liver causes, and he doesnt give us any h/o bleeding disorders. Plan: 1. Respiratory: He gives a vague h/o of asthma or COPD. Would continue w/ trc nebs, and tx w/ albuterol as needed for now. Would get records on his COPD history. Stable for now. Wean off oxygen as tolerated. 2. Infectious: Stable. ELevated wbc is likely due to steroids. All the cell lines are proportionally increased. Watch for any infection. 3. Circulatory: BP stable at this time; would need iv access, and monitor BP closely if he needs any pressor support or large boluses. Trops negative so far. No cardiac history as per the pt, but he is ASA and statin likely from primary prophylaxis. Obtain records to make sure. 4. Alimentary: Lower GI bleed- Acute blood loss anemia- Progression of the symptomatology, it appears to be a diverticular bleed that may have bled. We dont have any records of recent or previous colonoscopies, to make out if the colon cancer is back; or the type of colon cancer or stage and Tx. Blood transfusion as needed, and continue to have iv access to make sure that he can get IV boluses if needed. Doesnt appear to be upper, yet iv protonix wouldnt hurt unless proven that there upper GI is clean. Check Fe studies. He has been prep'ed for colonoscopy. CBC q12 hr. Housekeepin. DVT PPx - alps for now. 2. GI ppx- protonix 3. Lines- intravenous peripheral lines 4. Oxygen- supplemental 1-2L only, not intubated. 5. Pressors- none. 6. Rivera cath- none. 7. Diet- NPO. 8. Consults: GI, CRCU 9. Disposition: If he stable in the next 24 hrs; after the scope would downgrade him to gen med. 10. Full code. Consult Acknowledgment - Thank you for your consult request. Cedric Beth MD 04/10/17 1133: Assessment/Plan Other Findings/Comments: Cedric Sterling M.D. have examined this patient, reviewed available EMR data, personally reviewed images, discussed with resident/PA/MILL ORDER SCHEDULER, discussed management plan with housestaff and nursing staff, discussed managment plan all of healthcare providers, discussed management plan with patient and/or family, agreed with resident/PA/MILL ORDER SCHEDULER. The past history and parts of the chart have been autopopulated. Impression 81 year old man * acute blood loss anemia secondary to a likely lower GI bleed * history of asthma Plan -fu colonoscopy -if needed post procedure can involve gen surgery -if stable then can be dg to gm -given asthma, please order TRC with nebulizer therapy -f/u GI -monitor cbcs -iv access -monitor hemodynamics DVT prophylaxis at all times - ALPS TTS 40 min Consult Acknowledgment - Thank you for your consult request.
--- NOTE | 2017-04-10 12:10 | ECHOCARDIOGRAM REPORT ---
MIKA BLANC Age: 81 : 1935 Gender: M Exam Date: 04/09/2017 20:13 Exam Location: [facility] Ht (in): 67 Wt (lb): 168 BSA: 1.91 BP: 101 / 58 Ordering Physician: Lashell García MD Referring Physician: Lashell García MD Technologist: Syeda Michaels RDCS Room Number: 104 Indications: PRESYNCOPE/SYNCOPE Rhythm: Sinus Technical Quality: fair FINDINGS Left Ventricle Normal left ventricular size and wall thickness. Hyperdynamic systolic function with no obvious regional wall motion abnormalities. Diastolic filling pattern is consistent with impaired LV relaxation. The ejection fraction is visually estimated at 80%. Right Ventricle The right ventricle is normal in size and function. Right Atrium The right atrium is normal in size. Left Atrium The left atrium is normal in size. The interatrial septum is intact. Mitral Valve The mitral valve is normal in structure and function. There is no mitral regurgitation. Aortic Valve Structurally normal aortic valve without significant sclerosis or stenosis. There is no aortic regurgitation. Tricuspid Valve The tricuspid valve is normal in structure and function. There is no tricuspid regurgitation. Pulmonic Valve Structurally normal pulmonic valve. There is no pulmonic regurgitation. Pericardium Normal pericardium without effusion. No pleural effusion. Great Vessels Normal aortic root dimension. The aortic arch and great vessels are well seen and are normal. CONCLUSIONS 1. Hyperdynamic EF of 80% with impaired LV relaxation. Jozef Faustin M.D. (Electronically Signed) Final Date: 10 April 2017 12:10 MEASUREMENTS (Male / Female) Normal Values 2D ECHO LV Diastolic Diameter PLAX 3.7 cm 4.2 - 5.9 / 3.9 - 5.3 cm LV Systolic Diameter PLAX 2.3 cm 2.1 - 4.0 cm LV Fractional Shortening PLAX 37.8 % 25 - 46 % LV Ejection Fraction 2D Teich 68.8 % IVS Diastolic Thickness 1.0 cm LVPW Diastolic Thickness 1.1 cm LV Relative Wall Thickness 0.6 RV Internal Dim ED PLAX 2.6 cm 1.9 - 3.8 cm LVOT Diameter 2.1 cm Aortic Root Diameter 3.2 cm LA Systolic Diameter LX 3.8 cm 3.0 - 4.0 / 2.7 - 3.8 cm LA Volume 22.0 cm 18 - 58 / 22 - 52 cm DOPPLER AV Peak Velocity 134.0 cm/s AV Peak Gradient 7.2 mmHg AV Mean Velocity 99.5 cm/s AV Mean Gradient 4.0 mmHg AV Velocity Time Integral 27.8 cm LVOT Peak Velocity 90.2 cm/s LVOT Peak Gradient 3.3 mmHg LVOT Mean Velocity 58.0 cm/s LVOT Mean Gradient 2.0 mmHg LVOT Velocity Time Integral 17.0 cm LVOT Stroke Volume 58.9 cm AV Area Cont Eq vti 2.1 cm AV Area Cont Eq pk 2.3 cm MV Peak Velocity 83.5 cm/s MV Peak Gradient 2.8 mmHg MV Mean Velocity 54.4 cm/s MV Mean Gradient 1.0 mmHg Mitral E Point Velocity 65.6 cm/s Mitral A Point Velocity 80.5 cm/s Mitral E to A Ratio 0.8 MV PHT Velocity 72.1 cm/s MV Deceleration [place] 287.0 cm/s MV Pressure Half Time 75.4 ms MV Area PHT 2.9 cm MV Deceleration Time 172.0 ms LV E' Lateral Velocity 7.1 cm/s Mitral E to LV E' Lateral Ratio 9.2 LV E' Septal Velocity 4.6 cm/s Mitral E to LV E' Septal Ratio 14.4
--- NOTE | 2017-04-10 13:22 | Cons- Gastroenterology ---
General Information and HPI Consulting Request Date of Consult: 04/10/17 Requested By: Ciera Cheng MD Reason for Consult: Hematochezia, anemia, abdominal pain. Source of Information: patient Exam Limitations: language barrier History of Present Illness: Mr. Douglass is a 81 year old male with a history of a colon resection approximately 7 years ago presumably for colon cancer who presented to yesterday with reports of brbpr assoicated with cramping lower abdomimal pain. He notes that he had an acute onset of lower abdomimal cramps that was associated with profuse rectal bleeding. He states that he hasn't been passing any stool and that it was just blood and clots. Prior to this he apparently had been having normal bowel movements without any significant diarrhea or constipation. He has been without any upper abdominal pain with eating and he also denies any heartburn, dysphagia or vomiting. He also denies ever having rectal bleeding before. He had several bowel movements before coming to the ED where he was initially noted to be hemodynamically stable, but he did temporarily drop his blood pressure with subsequent bloody bowel movements so a ct angiogram was performed which was negative for active bleeding. He was subsequently transferred to the ICU and was prepped with a colyte prep in anticipation of a colonoscopy to be done today. He was also transfused with 2 units of packed red blood cells. He had a few bloody bowel movements at the beginning of the prep which resolved as he continued to take it. He has been hemodynamically stable since arriving to the ICU. Allergies/Medications Allergies: Coded Allergies: No Known Allergies (04/09/17) Home Med List: Albuterol Sulfate (Ventolin Hfa) 90 MCG HFA.AER.AD 1 PUF INH TID PRN RESP. ( Reported) Amlodipine Besylate 5 MG TABLET 1 TAB PO DAILY HEART/BP (Reported) Aspirin (Ecotrin*) 81 MG TABLET.DR 1 TAB PO DAILY HEART/BLOOD (Reported) Atorvastatin Calcium 10 MG TABLET 1 TAB PO DAILY CHOLESTEROL (Reported) Cyclosporine (Restasis) 0.05 % DROPERETTE 1 GTT OU BID BOTH EYES (Reported) Dorzolamide HCl/Timolol Maleat (Dorzolamide-Timolol Eye Drops) 22.3 MG-6.8 MG/ML DROPS 1 GTT OU BID BOTH EYES (Reported) Ergocalciferol (Vitamin D2) (Vitamin D2) 50,000 UNIT CAPSULE 1 CAP PO QW SUPPLEMENT (Reported) Naproxen 500 MG TABLET 1 TAB PO BID PAIN/INFLAMMATION (Reported) Oxycodone HCl/Acetaminophen (Oxycodone-Acetaminophen 10-325) 10 MG-325 MG TABLET 1 TAB PO 4XDAILY PRN PAIN (Reported) Current Medications: Current Medications Sig/Mark Start time Last Medication Dose Route Stop Time Status Admin Albuterol Sulfate 1 PUF Q4P PRN 04/10 1100 AC INH Albuterol Sulfate 3 ML Q4H PRN 04/10 1000 DC INH Albuterol Sulfate 1 PUF TID PRN 04/09 1900 DC INH Atorvastatin Calcium 10 MG 1700 04/10 1700 CAN PO Cyclosporine 1 GTT Q12 04/09 2200 AC 04/10 OPH 0916 Dorzolamide HCl 1 GTT BID 04/09 2200 UNV OPH Oxycodone/ 1 TAB Q6P PRN 04/09 1915 DC Acetaminophen PO Pantoprazole Sodium 40 MG DAILY 04/10 1000 AC 04/10 IV 0108 Polyethylene Glycol 1 GAL ONCE ONE 04/09 2345 DC 04/10 PO 04/09 2346 0010 Polyethylene Glycol 2 GAL ONCE ONE 04/09 2015 DC 04/09 PO 04/09 2016 2222 Sodium Chloride 1,000 ML BOLUS ONE 04/09 2345 DC IV 04/10 0044 Sodium Chloride 1,000 ML BOLUS ONE 04/09 2345 DC 04/10 IV 04/10 0044 0010 Sodium Chloride 1,000 ML BOLUS ONE 04/09 2145 DC 04/09 IV 04/09 2244 2223 Sodium Chloride 1,000 ML Q8H 04/09 1915 DC 04/10 IV 0343 Sodium Chloride 1,000 ML BOLUS ONE 04/09 1815 DC 04/09 IV 04/09 2013 1813 Sodium Chloride 1,000 ML BOLUS ONE 04/09 1500 DC 04/09 IV 04/09 1559 1450 Past History Travel History Traveled to [place] past 21 day No Medical History Neurological: NONE EENT: NONE Cardiovascular: hyperlipidemia Respiratory: asthma Gastrointestinal: COLON CA Hepatic: NONE Renal: NONE Musculoskeletal: NONE Psychiatric: NONE Endocrine: NONE Blood Disorders: NONE Cancer(s): colon/rectal cancer MUSTANGER/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 Home Who Do You Live With? self Smoking Status: Former Smoker ETOH Use: denies use Illicit Drug Use: denies illicit drug use Functional Ability ADLs Independent: dressing, eating, toileting, bathing. Ambulation: independent Review of Systems Review of Systems Constitutional: Reports: malaise, weakness. Denies: chills, diaphoresis, fever, unexplained weight loss. EENTM: Denies: no symptoms. Cardiovascular: Denies: no symptoms. Respiratory: Denies: no symptoms. GI: Reports: see HPI. Genitourinary: Denies: no symptoms. Musculoskeletal: Denies: no symptoms. Skin: Denies: no symptoms. Neurological/Psychological: Denies: no symptoms. Hematologic/Endocrine: Reports: bleeding. Immunologic/Allergic: Denies: no symptoms. All Other Systems: Reviewed and Negative Exam & Diagnostic Data Vital Signs and I&O Vital Signs Date Time Temp Pulse Resp B/P B/P Pulse O2 O2 Flow FiO2 Mean Ox Delivery Rate 04/10 1200 95 Nasal 2.0L Cannula 04/10 1047 Room Air 04/10 0800 97 Nasal 2.0L Cannula 04/10 0800 98.8 78 18 108/60 97 Nasal 2.0L Cannula 04/10 0418 99 Nasal 2.0L Cannula 04/10 0000 99 Nasal 2.0L Cannula 04/09 2300 97.4 79 18 82/40 99 Nasal 2.0L Cannula 04/09 2200 99 Nasal 2.0L Cannula 04/09 2200 97.3 80 16 89/55 96 04/09 2100 96.4 86 18 94/54 95 Nasal 2.0L Cannula 04/09 1754 86 18 101/58 97 Nasal 2.0L Cannula 04/09 1627 76 16 130/62 100 Room Air 2.0L 04/09 1525 75 16 139/96 99 Nasal 2.0L Cannula 04/09 1517 97.1 72 20 143/74 98 Nasal 2.0L Cannula 04/09 1510 98 Room Air 04/09 1450 97.5 79 18 178/94 97 Nasal 2.0L Cannula Intake & Output 04/10 1600 04/10 0400 04/09 1600 04/09 0400 04/08 1600 04/08 0400 Intake Total 3550 1700 1000 Output Total 1375 250 1 Balance 2175 1450 999 Intake, Blood 350 700 Product Intake, IV 1400 1000 1000 Intake, Oral 1800 Number 6 Bowel Movements Output, Stool 975 1 Output, Urine 400 250 Patient 178 lb 168 lb Weight Physical Exam General Appearance: well developed/nourished, no apparent distress, comfortable Head: atraumatic, normal appearance Eyes: Bilateral: normal appearance. Ears, Nose, Throat: normal pharynx, normal ENT inspection, poor dentition Neck: normal inspection, supple, full range of motion Respiratory: normal breath sounds, chest non-tender, no respiratory distress, quiet respiration Cardiovascular: regular rate/rhythm Gastrointestinal: normal bowel sounds, soft, non-tender, distention Rectal: deferred Back: normal inspection, normal range of motion Extremities: normal inspection, normal range of motion, no edema Neurologic/Psych: no motor/sensory deficits, awake, alert, oriented x 3 Skin: intact, normal color, warm/dry Results Pertinent Lab Results: Laboratory Tests 04/10 04/10 0636 0301 Chemistry Sodium (137 - 145 mmol/L) 142 Potassium (3.5 - 5.1 mmol/L) 3.8 Chloride (98 - 107 mmol/L) 112 H Carbon Dioxide (22 - 30 mmol/L) 21 L Anion Gap (5 - 16) 8 BUN (9 - 20 mg/dL) 33 H Creatinine (0.7 - 1.2 mg/dL) 1.0 Estimated GFR (>60 ml/min) > 60 BUN/Creatinine Ratio (7 - 25 %) 33.0 H Lactic Acid (0.7 - 2.1 mmol/L) 1.9 Calcium (8.4 - 10.2 mg/dL) 6.7 L Phosphorus (2.5 - 4.5 mg/dL) 3.2 Magnesium (1.6 - 2.3 mg/dL) 1.7 Total Bilirubin (0.2 - 1.3 mg/dL) 0.7 Direct Bilirubin (< 0.4 mg/dL) 0.2 AST (17 - 59 U/L) 16 L ALT (21 - 72 U/L) 36 Alkaline Phosphatase (< 127 U/L) 35 Troponin I (<0.11 ng/ml) 0.02 Total Protein (6.3 - 8.2 g/dL) 3.6 L Albumin (3.5 - 5.0 g/dL) 2.0 L Hematology CBC w Diff NO MAN DIFF REQ WBC (4.8 - 10.8 /CUMM) 14.9 H RBC (4.70 - 6.10 /CUMM) 3.57 L Hgb (14.0 - 18.0 G/DL) 11.0 L Hct (42 - 52 %) 32.8 L MCV (80.0 - 94.0 FL) 91.9 MCH (27.0 - 31.0 PG) 30.9 MCHC (33.0 - 37.0 G/DL) 33.6 RDW (11.5 - 14.5 %) 15.7 H Plt Count (130 - 400 /CUMM) 156 MPV (7.4 - 10.4 FL) 8.8 Gran % (42.2 - 75.2 %) 82.8 H Lymphocytes % (20.5 - 51.1 %) 9.2 L Monocytes % (1.7 - 9.3 %) 6.9 Eosinophils % (0 - 5 %) 1.0 Basophils % (0.0 - 2.0 %) 0.1 Absolute Granulocytes (1.4 - 6.5 /CUMM) 12.3 H Absolute Lymphocytes (1.2 - 3.4 /CUMM) 1.4 Absolute Monocytes (0.10 - 0.60 /CUMM) 1.0 H Absolute Eosinophils (0.0 - 0.7 /CUMM) 0.2 Absolute Basophils (0.0 - 0.2 /CUMM) 0 04/10 04/10 0110 0026 Chemistry Sodium (137 - 145 mmol/L) 142 Potassium (3.5 - 5.1 mmol/L) 4.2 Chloride (98 - 107 mmol/L) 113 H Carbon Dioxide (22 - 30 mmol/L) 24 Anion Gap (5 - 16) 5 BUN (9 - 20 mg/dL) 37 H Creatinine (0.7 - 1.2 mg/dL) 0.9 Estimated GFR (>60 ml/min) > 60 Glucose (65 - 99 mg/dL) 95 Lactic Acid (0.7 - 2.1 mmol/L) 2.5 H Calcium (8.4 - 10.2 mg/dL) 6.5 L Phosphorus (2.5 - 4.5 mg/dL) 3.2 Magnesium (1.6 - 2.3 mg/dL) 1.8 Total Bilirubin (0.2 - 1.3 mg/dL) 1.0 AST (17 - 59 U/L) 14 L ALT (21 - 72 U/L) 28 Albumin (3.5 - 5.0 g/dL) 1.9 L Hematology CBC w Diff NO MAN DIFF REQ WBC (4.8 - 10.8 /CUMM) 15.5 H RBC (4.70 - 6.10 /CUMM) 3.42 L Hgb (14.0 - 18.0 G/DL) 10.7 L Hct (42 - 52 %) 31.7 L MCV (80.0 - 94.0 FL) 92.8 MCH (27.0 - 31.0 PG) 31.2 H MCHC (33.0 - 37.0 G/DL) 33.7 RDW (11.5 - 14.5 %) 15.6 H Plt Count (130 - 400 /CUMM) 197 MPV (7.4 - 10.4 FL) 8.6 Gran % (42.2 - 75.2 %) 82.1 H Lymphocytes % (20.5 - 51.1 %) 10.0 L Monocytes % (1.7 - 9.3 %) 6.8 Eosinophils % (0 - 5 %) 1.0 Basophils % (0.0 - 2.0 %) 0.1 Absolute Granulocytes (1.4 - 6.5 /CUMM) 12.8 H Absolute Lymphocytes (1.2 - 3.4 /CUMM) 1.6 Absolute Monocytes (0.10 - 0.60 /CUMM) 1.1 H Absolute Eosinophils (0.0 - 0.7 /CUMM) 0.2 Absolute Basophils (0.0 - 0.2 /CUMM) 0 Urines Urine Color (YEL,AMB,STR) YEL Urine Clarity (CLEAR) CLEAR Urine pH (5.0 - 8.0) 5.5 Ur Specific Island (1.001 - 1.035) 1.020 Urine Protein (NEG,<30 MG/DL) TRACE H Urine Ketones (NEG) NEG Urine Nitrite (NEG) NEG Urine Bilirubin (NEG) NEG Urine Urobilinogen (0.1 - 1.0 EU/dl) 0.2 Ur Leukocyte Esterase (NEG) NEG Ur Microscopic SEDIMENT EXAMINED Urine RBC (0 - 5 /HPF) RARE Urine WBC (0 - 2 /HPF) 1-3 H Urine Mucus (FEW,NONE) FEW Urine Hemoglobin (NEG) NEG Urine Glucose (N MG/DL) NEG 04/09 Chemistry Lactic Acid (0.7 - 2.1 mmol/L) Cancelled 2.0 Troponin I (<0.11 ng/ml) 0.02 04/09 04/09 1826 1540 Chemistry Sodium (137 - 145 mmol/L) 142 Potassium (3.5 - 5.1 mmol/L) 3.9 Chloride (98 - 107 mmol/L) 108 H Carbon Dioxide (22 - 30 mmol/L) 27 Anion Gap (5 - 16) 8 BUN (9 - 20 mg/dL) 39 H Creatinine (0.7 - 1.2 mg/dL) 1.1 Estimated GFR (>60 ml/min) > 60 BUN/Creatinine Ratio (7 - 25 %) 35.5 H Glucose (65 - 99 mg/dL) 87 Calcium (8.4 - 10.2 mg/dL) 7.7 L Total Bilirubin (0.2 - 1.3 mg/dL) 0.5 AST (17 - 59 U/L) 14 L ALT (21 - 72 U/L) 37 Alkaline Phosphatase (< 127 U/L) 36 Troponin I (<0.11 ng/ml) < 0.01 Total Protein (6.3 - 8.2 g/dL) 4.8 L Albumin (3.5 - 5.0 g/dL) 2.7 L Globulin (1.9 - 4.2 gm/dL) 2.1 Albumin/Globulin Ratio (1.1 - 2.2 %) 1.3 Coagulation PT (9.4 - 12.5 SEC) 11.9 INR (0.90 - 1.17) 1.13 Hematology CBC w Diff NO MAN DIFF REQ WBC (4.8 - 10.8 /CUMM) 17.1 H RBC (4.70 - 6.10 /CUMM) 3.06 L Hgb (14.0 - 18.0 G/DL) 9.8 L Hct (42 - 52 %) 29.7 L MCV (80.0 - 94.0 FL) 97.2 H MCH (27.0 - 31.0 PG) 32.1 H MCHC (33.0 - 37.0 G/DL) 33.1 RDW (11.5 - 14.5 %) 14.2 Plt Count (130 - 400 /CUMM) 320 MPV (7.4 - 10.4 FL) 8.2 Gran % (42.2 - 75.2 %) 80.2 H Lymphocytes % (20.5 - 51.1 %) 10.5 L Monocytes % (1.7 - 9.3 %) 7.8 Eosinophils % (0 - 5 %) 1.3 Basophils % (0.0 - 2.0 %) 0.2 Absolute Granulocytes (1.4 - 6.5 /CUMM) 13.7 H Absolute Lymphocytes (1.2 - 3.4 /CUMM) 1.8 Absolute Monocytes (0.10 - 0.60 /CUMM) 1.3 H Absolute Eosinophils (0.0 - 0.7 /CUMM) 0.2 Absolute Basophils (0.0 - 0.2 /CUMM) 0 04/09 1453 Hematology CBC w Diff MAN DIFF ORDERED WBC (4.8 - 10.8 /CUMM) 16.5 H RBC (4.70 - 6.10 /CUMM) 4.33 L Hgb (14.0 - 18.0 G/DL) 13.8 L Hct (42 - 52 %) 42.0 MCV (80.0 - 94.0 FL) 96.9 H MCH (27.0 - 31.0 PG) 31.8 H MCHC (33.0 - 37.0 G/DL) 32.9 L RDW (11.5 - 14.5 %) 15.0 H Plt Count (130 - 400 /CUMM) 340 MPV (7.4 - 10.4 FL) 8.3 Gran % (42.2 - 75.2 %) 80.8 H Lymphocytes % (20.5 - 51.1 %) 13.2 L Monocytes % (1.7 - 9.3 %) 4.8 Eosinophils % (0 - 5 %) 1.2 Basophils % (0.0 - 2.0 %) 0 Absolute Granulocytes (1.4 - 6.5 /CUMM) 13.3 H Segmented Neutrophils (42.2 - 75.2 %) 76 H Band Neutrophils (0.0 - 5.0 %) 3 Absolute Lymphocytes (1.2 - 3.4 /CUMM) 2.2 Lymphocytes (20.5 - 51.1 %) 9 L Monocytes (1.7 - 9.3 %) 6 Absolute Monocytes (0.10 - 0.60 /CUMM) 0.8 H Eosinophils (0 - 5.0 %) 3 Absolute Eosinophils (0.0 - 0.7 /CUMM) 0.2 Absolute Basophils (0.0 - 0.2 /CUMM) 0 Metamyelocytes (0.0 - 1.0 %) 2 H Myelocytes (0 - 0 %) 1 H Platelet Estimate (ADEQUATE) VERIFIED BY SMEAR Anisocytosis 1+ Imaging/Other Studies: SERVICE DATE: 04/09/17 EXAM TYPE: CAT - CT ABD & PELVIS ANGIOGRAM; CTA CHEST EXAMINATION: CT CHEST, ABDOMEN AND PELVIS WITH CONTRAST CLINICAL INFORMATION: Lower GI bleed. Pain. Concern for ischemic colitis or aortic aneurysm. COMPARISON: Same day chest radiograph. TECHNIQUE: Contiguous axial thin section helical images of the chest, abdomen and pelvis were performed following the administration of 120 mL of intravenous Optiray 350. The data set was reformatted in the coronal and sagittal planes and reviewed on an independent workstation. DLP: 1920 mGy-cm. FINDINGS: The heart is of normal size. There is no pericardial effusion. There is neither mediastinal, hilar nor axillary lymphadenopathy. There are no chest wall masses. There is a small hiatal hernia. There is mural plaque identified within the aortic arch. There is no aortic aneurysm demonstrable. The ascending thoracic aorta measures 3.7 cm in greatest sagittal AP dimension. There are no pulmonary arterial filling defects. There is calcified plaque within the infrarenal abdominal aorta. Review of lung windows demonstrates that there are neither pleural effusions nor pneumothoraces. There are no consolidations. Within the inferior right upper lobe on image [id number], there is a 2 mm benign appearing calcified pulmonary nodule. There are a few blebs present within each apex. The liver is of normal size and attenuation without focal lesions nor intrahepatic biliary ductal dilation. The patient is status post cholecystectomy. Surgical clips are present. The spleen, pancreas, adrenal glands are unremarkable. Both kidneys are of normal size and attenuation without hydronephrosis or nephrolithiasis. Following the administration of IV contrast, prompt symmetric nephrograms are displayed. There are bilateral renal cysts. There is bilateral perinephric stranding. There is no abdominal free fluid. There is neither mesenteric nor retroperitoneal lymphadenopathy. Normal unopacified loops of small and large bowel are identified. A normal appendix is identified. There is no pelvic free fluid. The urinary bladder is unremarkable. There is neither pelvic nor inguinal lymphadenopathy. Bone windows: Neither sclerotic nor lytic bone lesions are identified. Air is disc height loss at L4/L5. IMPRESSION: No aortic aneurysm demonstrable. Scattered areas of noncalcified and calcified plaque. No evidence for acute thoracic, abdominal nor pelvic inflammatory or infectious processes. Hiatal hernia. Status post cholecystectomy. 3-D reconstructions have not been performed at this time. This examination will be reviewed by an Interventional Radiologist and an addendum place. Assessment/Plan Assessment/Recommendations: Assessment: Mr. Douglass is a 81 year old male with a history of a colon resection presumably secondary to cancer who presents now with rectal bleeding with a fall in his hgb most likely secondary to a diverticular bleed. He had a ct angiogram that was negative for active bleeding, which was confirmed with speaking to radiology even though this was not mentioned in the body of the report and as the bleeding resolved shortly after the bowel prep and his hemoglobin has been stable and he has remained hemodynamically stable the bleeding has likely stopped. He did have some lower abdominal pain which makes diverticulosis somewhat less likely, but as there was also no obvious colitis on the ct scan I still feel this is the most likely cause. Other possibilities include a colon cancer recurrence, a dielagoys lesion, AVMs, or even a rapid transit upper GI bleed, but this is highly unlikely considering how stable he is. I will arrange for a diagnsotic colonoscopy later today to further evaluated the etiology of his bleeding and potentiall treat any high risk lesions. Recommendations: 1. Keep NPO 2. Follow CBC q8hrs and transfuse as needed to keep hgb > 8 3. Hold all nsaids (asa) for now. 4. D/C IV protonix 5. Maintain 2 large bore IVs at all times 6. Continue ICU monitoring for now 7. Notify GI for signs of recurrent hemodynamically significant GI bleeding. 8. Will arrange for a diagnostic/therapeutic colonoscopy for later today. I will continue to follow this patient and make further recommendations based on his clinical course and the results of the colonoscopy. Problem List: 1. GI bleed 2. Lower GI bleed 3. Near syncope Copies To: Cesar DWYER,Cameron Grayson Consult Acknowledgment - Thank you for your consult request.
--- NOTE | 2017-04-10 14:01 | Proc Note Colonoscopy ---
Colonoscopy Procedure Medical History: unchanged (see meditech consult) Mental Status: alert/oriented Heart/Lung Eval Prior to Sedation: within normal limits Candidate for Sedation? Yes Date of Last Colonoscopy: Pt uncertain, but he apparently had colon surgery about 7 years ago. Procedure Date: 04/10/17 Procedure Type: colon with biopsy and APC cautery Assistant Executive Housekeeper: Ray Riddle MD ASA Classification: III Indications: Hematochezia. Instrument (Colonoscope): single channel Meds Received: MAC Patient's Tolerance: good Complications: none Extent Reached: cecum Prep: good Procedure: The risks of a colonoscopy was explained to the patient including, but not limited to, the risks of perforation, bleeding and/or a missed lesion and then written informed consent was obtained. After getting written informed consent the patient was placed in the left lateral decubitus position with pulse oximetry, cardiac monitoring, and supplemental oxygen was given. IV sedation was given until the desired effect was achieved. A rectal exam was performed which was normal. A high definition variable stiffness Olympus colonoscope was then inserted into the anus and advanced to the cecum with little difficulty. Retroflexed views were obtained in both the right colon and rectum and photodocumentation was obtained. Close inspection of the colonic mucosa was performed on insertion and withdrawal of the colonoscope with a withdrawal time that was adequate in length to closely inspect all folds and ignacio of the colon. Findings: The surgical anastomosis was located at approximate 35 cm from the incisors and it was markedly friable, and irregular in appearance and while there was no discrete mass the endoscopic findings were suggestive of a malignancy. Multiple biopsies were obtained from the irregular-appearing mucosa of the surgical anastomosis and were sent to pathology for further evaluation. There is a nonbleeding AVM in the cecum which was ablated using APC without any significant bleeding ensuing with the ablation. There were a few scattered diverticula appreciated in the descending colon proximal to the surgical anastomosis. The remainder the visualized colonic mucosa was grossly normal in appearance. Rectum views in the rectum revealed small internal hemorrhoids. Retroflexed views in the right colon did not reveal any polyps. Impression: 1. Irregular-appearing surgical anastomosis at 35 cm from the incisors which is the likely source of blood loss and is concerning for recurrent malignancy status post biopsies. 2. 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 3. Mild diverticulosis. 4. Small internal hemorrhoids. Recommendations: 1. His diet should be advanced as tolerated. 2. Is safe to transfer him out of the ICU. 3. The pathology results should be followed up as an outpatient. 4. If the pathology results are consistent with malignancy he should be referred to a surgeon and to an oncologist. 5. Hold asa for 72 hours and if no re-bleeding safe to restart it if it is medically indicated. CC: Cesar DWYER,Cameron Grayson
[2017-04-10 16:00] VITALS: BP 112/62
[2017-04-10 21:22] LABS: ABSOLUTE BASOPHIL COUNT 0 /CUMM (0.0-0.2); ABSOLUTE EOSINOPHIL COUNT 0.1 /CUMM (0.0-0.7); ABSOLUTE GRANULOCYTE CT 10.4 /CUMM (1.4-6.5); ABSOLUTE LYMPH COUNT 1.3 /CUMM (1.2-3.4); BASOPHIL % 0 % (0.0-2.0); EOSINOPHIL % 1.1 % (0-5); GRANULOCYTE % 81.2 % (42.2-75.2); HEMATOCRIT 29.1 % (42-52); MEAN CORPUSCULAR HGB 30.8 PG (27.0-31.0); MEAN CORPUSCULAR HGB CONC 33.4 G/DL (33.0-37.0); MEAN CORPUSCULAR VOLUME 92.2 FL (80.0-94.0); MEAN PLATELET VOLUME 8.8 FL (7.4-10.4); PLATELET COUNT 148 /CUMM (130-400); RBC DISTRIBUTION WIDTH 15.7 % (11.5-14.5); RED BLOOD CELL CT 3.15 /CUMM (4.70-6.10); WHITE BLOOD CELL COUNT 12.8 /CUMM (4.8-10.8)
[2017-04-10 23:00] VITALS: BP 108/60
[2017-04-11 06:00] VITALS: BP 110/64
[2017-04-11 10:03] LABS: ABSOLUTE BASOPHIL COUNT 0 /CUMM (0.0-0.2); ABSOLUTE EOSINOPHIL COUNT 0.2 /CUMM (0.0-0.7); ABSOLUTE GRANULOCYTE CT 11.7 /CUMM (1.4-6.5); ABSOLUTE LYMPH COUNT 1.4 /CUMM (1.2-3.4); ABSOLUTE MONOCYTE COUNT 0.8 /CUMM (0.10-0.60); BASOPHIL % 0 % (0.0-2.0); EOSINOPHIL % 1.5 % (0-5); GRANULOCYTE % 82.6 % (42.2-75.2); MEAN CORPUSCULAR HGB 31.3 PG (27.0-31.0); MEAN CORPUSCULAR HGB CONC 33.5 G/DL (33.0-37.0); MEAN CORPUSCULAR VOLUME 93.6 FL (80.0-94.0); MEAN PLATELET VOLUME 8.9 FL (7.4-10.4); PLATELET COUNT 188 /CUMM (130-400); RED BLOOD CELL CT 3.41 /CUMM (4.70-6.10); WHITE BLOOD CELL COUNT 14.1 /CUMM (4.8-10.8)
--- NOTE | 2017-04-11 12:31 | PN- Att Addend ---
Attending Addendum Attending Brief Note Patient seen and examined, currently denies any complaints. Status post colonoscopy yesterday. No further episodes of the bright red blood per rectum. Vital Signs Date Time Temp Pulse Resp B/P B/P Pulse O2 O2 Flow FiO2 Mean Ox Delivery Rate 04/11 0600 97.8 77 20 110/64 95 Room Air 04/10 2300 98.0 80 20 108/60 96 Room Air 04/10 1600 97.6 78 17 112/62 98 Room Air on exam; aox3, nad. cv; s1,s2 rrr resp; clear abd; soft, nt, bs+ ext; no edema. Laboratory Tests 04/11 04/10 0903 2030 Chemistry Sodium (137 - 145 mmol/L) 139 Potassium (3.5 - 5.1 mmol/L) 3.4 L Chloride (98 - 107 mmol/L) 105 Carbon Dioxide (22 - 30 mmol/L) 22 Anion Gap (5 - 16) 11 BUN (9 - 20 mg/dL) 20 Creatinine (0.7 - 1.2 mg/dL) 1.0 Estimated GFR (>60 ml/min) > 60 BUN/Creatinine Ratio (7 - 25 %) 20.0 Hematology CBC w Diff NO MAN DIFF REQ NO MAN DIFF REQ WBC (4.8 - 10.8 /CUMM) 14.1 H 12.8 H RBC (4.70 - 6.10 /CUMM) 3.41 L 3.15 L Hgb (14.0 - 18.0 G/DL) 10.7 L 9.7 L Hct (42 - 52 %) 32.0 L 29.1 L MCV (80.0 - 94.0 FL) 93.6 92.2 MCH (27.0 - 31.0 PG) 31.3 H 30.8 MCHC (33.0 - 37.0 G/DL) 33.5 33.4 RDW (11.5 - 14.5 %) 16.0 H 15.7 H Plt Count (130 - 400 /CUMM) 188 148 MPV (7.4 - 10.4 FL) 8.9 8.8 Gran % (42.2 - 75.2 %) 82.6 H 81.2 H Lymphocytes % (20.5 - 51.1 %) 10.2 L 10.2 L Monocytes % (1.7 - 9.3 %) 5.7 7.5 Eosinophils % (0 - 5 %) 1.5 1.1 Basophils % (0.0 - 2.0 %) 0 0 Absolute Granulocytes (1.4 - 6.5 /CUMM) 11.7 H 10.4 H Absolute Lymphocytes (1.2 - 3.4 /CUMM) 1.4 1.3 Absolute Monocytes (0.10 - 0.60 /CUMM) 0.8 H 1.0 H Absolute Eosinophils (0.0 - 0.7 /CUMM) 0.2 0.1 Absolute Basophils (0.0 - 0.2 /CUMM) 0 0 A/P: 81 y/o M with pmh sig for possible colon cancer s/p resection 7yrs ago, 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 Asthma/COPD, HTN admitted with Lower GIB, Acute blood loss anemia. S/P Colonoscopy: Impression: 1. Irregular-appearing surgical anastomosis at 35 cm from the incisors which is the likely source of blood loss and is concerning for recurrent malignancy status post biopsies. 2. 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 3. Mild diverticulosis. 4. Small internal hemorrhoids. At this point no further GIB and H&H remains stable. Please advance diet to full liquid and then further as tolerated. Please get PT evaluation. Monitor H&H. Continue the rest of the management. DVT px: ALPS.
[2017-04-11 14:11] VITALS: BP 122/64
[2017-04-11 22:47] VITALS: BP 116/60
[2017-04-12 06:20] VITALS: BP 100/50
--- NOTE | 2017-04-12 07:37 | PN- Housestaff ---
[facility]36: Subjective Follow-up For: Bleeding per rectum s/p colonoscopy Acute blood loss anemia Subjective: No overnight events. Patient remained afebrile overnight. Seen and examined this morning. He denied any chest pain, short of breath, nausea, vomiting, melena, hematochezia, chills, fever, abdominal pain dysuria. Yesterday patient was complaining of urinary retention and straight catheterization was done. This morning he didn't have any urinary retention for now. Review of Systems Constitutional: Reports: no symptoms. EENTM: Reports: no symptoms. Cardiovascular: Reports: no symptoms. Respiratory: Reports: no symptoms. Gastrointestinal: Reports: no symptoms. Genitourinary: Reports: see HPI. Musculoskeletal: Reports: no symptoms. Neurological/Psychological: Reports: no symptoms. Objective Last 24 Hrs of Vital Signs/I&O Vital Signs Date Time Temp Pulse Resp B/P B/P Pulse O2 O2 Flow FiO2 Mean Ox Delivery Rate 04/12 0620 98.6 79 20 100/50 93 Room Air 04/11 2247 97.9 91 20 116/60 92 Room Air 04/11 1411 98.8 99 20 122/64 97 Intake & Output 04/12 1600 04/12 0800 04/12 0000 Intake Total 300 300 Output Total 1100 500 Balance -800 -200 Intake, Oral 300 300 Output, Urine 1100 500 Patient 181 lb Weight Weight Bed scale Measurement Method Physical Exam General Appearance: Alert, Oriented X3, Cooperative Skin Temp/Moisture Exam: Warm/Dry Sepsis Skin Exam (color): Normal for Ethnicity HEENT: Atraumatic, PERRLA, EOMI Neck: Supple Cardiovascular: Normal S1, Normal S2 Lungs: Clear to Auscultation Abdomen: Soft, No Tenderness Neurological: Normal Speech, Normal Tone Extremities: No Edema Assessment/Plan Assessment: 81 yo Portugese speaking M with h/o HTN, glaucoma, blind in left eye, asthma, ? rectal cancer vs polyp s/p ?resection (7 yrs ago), is here for evaluation of sudden onset multiple episodes of bright red blood per rectum preceded by abdominal cramping. Blood clots+. Patient reports feeling dizzy, lightheaded. While in the ER waiting room, patient had a near-syncopal episode, was pale and diaphoretic. He had about 5-6 episodes of BRBPR while in the ER. Bleeding per rectum status post colonoscopy: -Patient received 4 blood transfusions. No further complaints of bleeding per rectum for now. -We will monitor for any bleeding per rectum. -We will monitor H&H if it's less than 8 we will transfuse him. -Colonoscopy was done by GI that showed irregularly appearing anastomosis at 35 cm from incisors which is the likely source of blood loss and maybe concerning of recurrent malignancy status post biopsies. -Patient will follow the GI for biopsy results. And results will be followed with oncology and surgery. Acute blood loss anemia: -We will follow his H&H -Today H&H is 8.2/24.1. We will repleted and if it's less than 8 we will transfuse him. Perianal fungal infection; -Nilstat powder. -Keep the area dry. DVT prophylaxis: Mechanical only CODE STATUS: Full code Problem List: 1. Lower GI bleed 2. Anemia Pain Ratin Pain Location: none Pain Goal: Remain pain free Pain Plan: pain pathway Tomorrow's Labs & Rationales: cbc/bep Prosper DWYERCiera 04/12/17 1240: Attending MD Review Statement Attending Statement Attending MD Statement: examined this patient, discuss w/resident/PA/LAPEL PADDER BLINDSTITCH, agreed w/resident/PA/LAPEL PADDER BLINDSTITCH, reviewed EMR data (avail), discussed with nursing, discussed with case mgmt, reviewed images, amended to note Attending Assessment/Plan: Patient seen and examined, claims that he had some difficulty with urination last night. Patient needed to be straight cath. This morning there is a drop in his H&H. Vital Signs Date Time Temp Pulse Resp B/P B/P Pulse O2 O2 Flow FiO2 Mean Ox Delivery Rate 04/12 0620 98.6 79 20 100/50 93 Room Air 04/11 2247 97.9 91 20 116/60 92 Room Air 04/11 1411 98.8 99 20 122/64 97 on exam; aox3, nad. cv; s1,s2 rrr resp; clear abd; soft, nt, bs+ ext; no edema Laboratory Tests 04/12 04/12 1200 0840 Chemistry Sodium (137 - 145 mmol/L) 139 Potassium (3.5 - 5.1 mmol/L) 3.6 Chloride (98 - 107 mmol/L) 106 Carbon Dioxide (22 - 30 mmol/L) 24 Anion Gap (5 - 16) 8 BUN (9 - 20 mg/dL) 15 Creatinine (0.7 - 1.2 mg/dL) 0.9 Estimated GFR (>60 ml/min) > 60 BUN/Creatinine Ratio (7 - 25 %) 16.7 Hematology CBC w Diff NO MAN DIFF REQ NO MAN DIFF REQ WBC (4.8 - 10.8 /CUMM) 8.9 8.9 RBC (4.70 - 6.10 /CUMM) 2.61 L 2.67 L Hgb (14.0 - 18.0 G/DL) 8.2 L 8.4 L Hct (42 - 52 %) 24.1 L 24.7 L MCV (80.0 - 94.0 FL) 92.6 92.7 MCH (27.0 - 31.0 PG) 31.5 H 31.5 H MCHC (33.0 - 37.0 G/DL) 34.1 34.0 RDW (11.5 - 14.5 %) 15.1 H 15.4 H Plt Count (130 - 400 /CUMM) 136 142 MPV (7.4 - 10.4 FL) 9.0 9.4 Gran % (42.2 - 75.2 %) 84.2 H 81.6 H Lymphocytes % (20.5 - 51.1 %) 8.3 L 10.6 L Monocytes % (1.7 - 9.3 %) 6.4 6.5 Eosinophils % (0 - 5 %) 1.0 1.2 Basophils % (0.0 - 2.0 %) 0.1 0.1 Absolute Granulocytes (1.4 - 6.5 /CUMM) 7.5 H 7.3 H Absolute Lymphocytes (1.2 - 3.4 /CUMM) 0.7 L 0.9 L Absolute Monocytes (0.10 - 0.60 /CUMM) 0.6 0.6 Absolute Eosinophils (0.0 - 0.7 /CUMM) 0.1 0.1 Absolute Basophils (0.0 - 0.2 /CUMM) 0 0 A/P; A/P: 81 y/o M with pmh sig for possible colon cancer s/p resection 7yrs ago , 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 Asthma/COPD, HTN admitted with Lower GIB, Acute blood loss anemia. S/P Colonoscopy: Impression: 1. Irregular-appearing surgical anastomosis at 35 cm from the incisors which is the likely source of blood loss and is concerning for recurrent malignancy status post biopsies. 2. 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 3. Mild diverticulosis. 4. Small internal hemorrhoids. This morning patient had a drop in H&H which was repeated and confirmed. Please notify GI about the drop in H&H. Patient remains on full liquid diet. Do not advance diet before checking the GI. Patients are and recheck bladder scan today, if there is evidence of urinary retention he will require a urology consult. Continue other current medications. Will monitor H&H.
[2017-04-12 09:26] LABS: ABSOLUTE BASOPHIL COUNT 0 /CUMM (0.0-0.2); ABSOLUTE EOSINOPHIL COUNT 0.1 /CUMM (0.0-0.7); ABSOLUTE LYMPH COUNT 0.9 /CUMM (1.2-3.4); ABSOLUTE MONOCYTE COUNT 0.6 /CUMM (0.10-0.60); EOSINOPHIL % 1.2 % (0-5); MEAN PLATELET VOLUME 9.4 FL (7.4-10.4); WHITE BLOOD CELL COUNT 8.9 /CUMM (4.8-10.8)
[2017-04-12 09:47] LABS: ABSOLUTE GRANULOCYTE CT 7.3 /CUMM (1.4-6.5); BASOPHIL % 0.1 % (0.0-2.0); GRANULOCYTE % 81.6 % (42.2-75.2); MEAN CORPUSCULAR HGB 31.5 PG (27.0-31.0); MEAN CORPUSCULAR VOLUME 92.7 FL (80.0-94.0); PLATELET COUNT 142 /CUMM (130-400); RBC DISTRIBUTION WIDTH 15.4 % (11.5-14.5); RED BLOOD CELL CT 2.67 /CUMM (4.70-6.10)
[2017-04-12 09:54] LABS: HEMATOCRIT 24.7 % (42-52)
[2017-04-12 12:21] LABS: ABSOLUTE BASOPHIL COUNT 0 /CUMM (0.0-0.2); ABSOLUTE EOSINOPHIL COUNT 0.1 /CUMM (0.0-0.7); ABSOLUTE GRANULOCYTE CT 7.5 /CUMM (1.4-6.5); ABSOLUTE LYMPH COUNT 0.7 /CUMM (1.2-3.4); ABSOLUTE MONOCYTE COUNT 0.6 /CUMM (0.10-0.60); BASOPHIL % 0.1 % (0.0-2.0); GRANULOCYTE % 84.2 % (42.2-75.2); HEMATOCRIT 24.1 % (42-52); MEAN CORPUSCULAR HGB 31.5 PG (27.0-31.0); MEAN CORPUSCULAR HGB CONC 34.1 G/DL (33.0-37.0); MEAN CORPUSCULAR VOLUME 92.6 FL (80.0-94.0); PLATELET COUNT 136 /CUMM (130-400); RBC DISTRIBUTION WIDTH 15.1 % (11.5-14.5); RED BLOOD CELL CT 2.61 /CUMM (4.70-6.10); WHITE BLOOD CELL COUNT 8.9 /CUMM (4.8-10.8)
[2017-04-12 13:04] VITALS: BP 112/58
--- NOTE | 2017-04-12 15:02 | PN- Gastroenterology ---
Assessment/Plan Assessment/Recommendations: ASSESSMENT: 1. GI Bleed -- no further active bleeding. Drop in H/H likely due to hemodilution 2. ? Recurrence of colon cancer at anastomosis RECOMMENDATIONS: 1. Await pathology from colonic biopsy 2. Monitor for signs of active bleeding 3. If H/H stable discharge to home with follow up with Dr. Riddle for pathology review. 4. Advance diet. Subjective Subjective: Patient not discharged due to a drop in H/H. No melena nor bright red blood per rectum. Objective Vital Signs and I&Os Vital Signs Date Time Temp Pulse Resp B/P B/P Pulse O2 O2 Flow FiO2 Mean Ox Delivery Rate 04/12 1304 90 112/58 04/12 0620 98.6 79 20 100/50 93 Room Air 04/11 2247 97.9 91 20 116/60 92 Room Air Intake & Output 04/12 1600 04/12 0400 04/11 1600 04/11 0400 04/10 1600 04/10 0400 Intake Total 300 300 810 724 8552 1700 Output Total 200 0903 393 4296 250 Balance 100 -1100 422 766 7895 1450 Intake, Blood 350 700 Product Intake, IV 1400 1000 Intake, Oral 300 300 951 142 5065 Number 6 Bowel Movements Output, Stool 975 Output, Urine 200 1400 300 600 250 Patient 181 lb 183 lb 178 lb Weight Weight Bed scale Bed scale Measurement Method Current Medications: Current Medications Sig/Mark Start time Last Medication Dose Route Stop Time Status Admin Albuterol Sulfate 1 PUF Q4P PRN 04/10 1100 AC INH Atorvastatin Calcium 10 MG 1700 04/11 1700 AC 04/11 PO 1610 Cyclosporine 1 GTT Q12 04/09 2200 AC 04/12 OPH 1001 Dorzolamide HCl 1 GTT BID 04/09 2200 UNV OPH Nystatin 1 LATOSHA BID 04/12 1000 AC 04/12 TOP 1000 Potassium Chloride 40 MEQ ONCE ONE 04/12 1145 DC 04/12 PO 04/12 1146 1301 Zinc Oxide 1 LATOSHA BID 04/11 1440 AC 04/12 TOP 1001 Results Pertinent Lab Results: Laboratory Tests 04/12 04/12 1200 0840 Chemistry Sodium (137 - 145 mmol/L) 139 Potassium (3.5 - 5.1 mmol/L) 3.6 Chloride (98 - 107 mmol/L) 106 Carbon Dioxide (22 - 30 mmol/L) 24 Anion Gap (5 - 16) 8 BUN (9 - 20 mg/dL) 15 Creatinine (0.7 - 1.2 mg/dL) 0.9 Estimated GFR (>60 ml/min) > 60 BUN/Creatinine Ratio (7 - 25 %) 16.7 Hematology CBC w Diff NO MAN DIFF REQ NO MAN DIFF REQ WBC (4.8 - 10.8 /CUMM) 8.9 8.9 RBC (4.70 - 6.10 /CUMM) 2.61 L 2.67 L Hgb (14.0 - 18.0 G/DL) 8.2 L 8.4 L Hct (42 - 52 %) 24.1 L 24.7 L MCV (80.0 - 94.0 FL) 92.6 92.7 MCH (27.0 - 31.0 PG) 31.5 H 31.5 H MCHC (33.0 - 37.0 G/DL) 34.1 34.0 RDW (11.5 - 14.5 %) 15.1 H 15.4 H Plt Count (130 - 400 /CUMM) 136 142 MPV (7.4 - 10.4 FL) 9.0 9.4 Gran % (42.2 - 75.2 %) 84.2 H 81.6 H Lymphocytes % (20.5 - 51.1 %) 8.3 L 10.6 L Monocytes % (1.7 - 9.3 %) 6.4 6.5 Eosinophils % (0 - 5 %) 1.0 1.2 Basophils % (0.0 - 2.0 %) 0.1 0.1 Absolute Granulocytes (1.4 - 6.5 /CUMM) 7.5 H 7.3 H Absolute Lymphocytes (1.2 - 3.4 /CUMM) 0.7 L 0.9 L Absolute Monocytes (0.10 - 0.60 /CUMM) 0.6 0.6 Absolute Eosinophils (0.0 - 0.7 /CUMM) 0.1 0.1 Absolute Basophils (0.0 - 0.2 /CUMM) 0 0 04/11 04/10 0903 2030 Chemistry Sodium (137 - 145 mmol/L) 139 Potassium (3.5 - 5.1 mmol/L) 3.4 L Chloride (98 - 107 mmol/L) 105 Carbon Dioxide (22 - 30 mmol/L) 22 Anion Gap (5 - 16) 11 BUN (9 - 20 mg/dL) 20 Creatinine (0.7 - 1.2 mg/dL) 1.0 Estimated GFR (>60 ml/min) > 60 BUN/Creatinine Ratio (7 - 25 %) 20.0 Hematology CBC w Diff NO MAN DIFF REQ NO MAN DIFF REQ WBC (4.8 - 10.8 /CUMM) 14.1 H 12.8 H RBC (4.70 - 6.10 /CUMM) 3.41 L 3.15 L Hgb (14.0 - 18.0 G/DL) 10.7 L 9.7 L Hct (42 - 52 %) 32.0 L 29.1 L MCV (80.0 - 94.0 FL) 93.6 92.2 MCH (27.0 - 31.0 PG) 31.3 H 30.8 MCHC (33.0 - 37.0 G/DL) 33.5 33.4 RDW (11.5 - 14.5 %) 16.0 H 15.7 H Plt Count (130 - 400 /CUMM) 188 148 MPV (7.4 - 10.4 FL) 8.9 8.8 Gran % (42.2 - 75.2 %) 82.6 H 81.2 H Lymphocytes % (20.5 - 51.1 %) 10.2 L 10.2 L Monocytes % (1.7 - 9.3 %) 5.7 7.5 Eosinophils % (0 - 5 %) 1.5 1.1 Basophils % (0.0 - 2.0 %) 0 0 Absolute Granulocytes (1.4 - 6.5 /CUMM) 11.7 H 10.4 H Absolute Lymphocytes (1.2 - 3.4 /CUMM) 1.4 1.3 Absolute Monocytes (0.10 - 0.60 /CUMM) 0.8 H 1.0 H Absolute Eosinophils (0.0 - 0.7 /CUMM) 0.2 0.1 Absolute Basophils (0.0 - 0.2 /CUMM) 0 0 04/10 04/10 0636 0301 Chemistry Sodium (137 - 145 mmol/L) 142 Potassium (3.5 - 5.1 mmol/L) 3.8 Chloride (98 - 107 mmol/L) 112 H Carbon Dioxide (22 - 30 mmol/L) 21 L Anion Gap (5 - 16) 8 BUN (9 - 20 mg/dL) 33 H Creatinine (0.7 - 1.2 mg/dL) 1.0 Estimated GFR (>60 ml/min) > 60 BUN/Creatinine Ratio (7 - 25 %) 33.0 H Lactic Acid (0.7 - 2.1 mmol/L) 1.9 Calcium (8.4 - 10.2 mg/dL) 6.7 L Phosphorus (2.5 - 4.5 mg/dL) 3.2 Magnesium (1.6 - 2.3 mg/dL) 1.7 Total Bilirubin (0.2 - 1.3 mg/dL) 0.7 Direct Bilirubin (< 0.4 mg/dL) 0.2 AST (17 - 59 U/L) 16 L ALT (21 - 72 U/L) 36 Alkaline Phosphatase (< 127 U/L) 35 Troponin I (<0.11 ng/ml) 0.02 Total Protein (6.3 - 8.2 g/dL) 3.6 L Albumin (3.5 - 5.0 g/dL) 2.0 L Hematology CBC w Diff NO MAN DIFF REQ WBC (4.8 - 10.8 /CUMM) 14.9 H RBC (4.70 - 6.10 /CUMM) 3.57 L Hgb (14.0 - 18.0 G/DL) 11.0 L Hct (42 - 52 %) 32.8 L MCV (80.0 - 94.0 FL) 91.9 MCH (27.0 - 31.0 PG) 30.9 MCHC (33.0 - 37.0 G/DL) 33.6 RDW (11.5 - 14.5 %) 15.7 H Plt Count (130 - 400 /CUMM) 156 MPV (7.4 - 10.4 FL) 8.8 Gran % (42.2 - 75.2 %) 82.8 H Lymphocytes % (20.5 - 51.1 %) 9.2 L Monocytes % (1.7 - 9.3 %) 6.9 Eosinophils % (0 - 5 %) 1.0 Basophils % (0.0 - 2.0 %) 0.1 Absolute Granulocytes (1.4 - 6.5 /CUMM) 12.3 H Absolute Lymphocytes (1.2 - 3.4 /CUMM) 1.4 Absolute Monocytes (0.10 - 0.60 /CUMM) 1.0 H Absolute Eosinophils (0.0 - 0.7 /CUMM) 0.2 Absolute Basophils (0.0 - 0.2 /CUMM) 0 04/10 04/10 0110 0026 Chemistry Sodium (137 - 145 mmol/L) 142 Potassium (3.5 - 5.1 mmol/L) 4.2 Chloride (98 - 107 mmol/L) 113 H Carbon Dioxide (22 - 30 mmol/L) 24 Anion Gap (5 - 16) 5 BUN (9 - 20 mg/dL) 37 H Creatinine (0.7 - 1.2 mg/dL) 0.9 Estimated GFR (>60 ml/min) > 60 Glucose (65 - 99 mg/dL) 95 Lactic Acid (0.7 - 2.1 mmol/L) 2.5 H Calcium (8.4 - 10.2 mg/dL) 6.5 L Phosphorus (2.5 - 4.5 mg/dL) 3.2 Magnesium (1.6 - 2.3 mg/dL) 1.8 Total Bilirubin (0.2 - 1.3 mg/dL) 1.0 AST (17 - 59 U/L) 14 L ALT (21 - 72 U/L) 28 Albumin (3.5 - 5.0 g/dL) 1.9 L Hematology CBC w Diff NO MAN DIFF REQ WBC (4.8 - 10.8 /CUMM) 15.5 H RBC (4.70 - 6.10 /CUMM) 3.42 L Hgb (14.0 - 18.0 G/DL) 10.7 L Hct (42 - 52 %) 31.7 L MCV (80.0 - 94.0 FL) 92.8 MCH (27.0 - 31.0 PG) 31.2 H MCHC (33.0 - 37.0 G/DL) 33.7 RDW (11.5 - 14.5 %) 15.6 H Plt Count (130 - 400 /CUMM) 197 MPV (7.4 - 10.4 FL) 8.6 Gran % (42.2 - 75.2 %) 82.1 H Lymphocytes % (20.5 - 51.1 %) 10.0 L Monocytes % (1.7 - 9.3 %) 6.8 Eosinophils % (0 - 5 %) 1.0 Basophils % (0.0 - 2.0 %) 0.1 Absolute Granulocytes (1.4 - 6.5 /CUMM) 12.8 H Absolute Lymphocytes (1.2 - 3.4 /CUMM) 1.6 Absolute Monocytes (0.10 - 0.60 /CUMM) 1.1 H Absolute Eosinophils (0.0 - 0.7 /CUMM) 0.2 Absolute Basophils (0.0 - 0.2 /CUMM) 0 Urines Urine Color (YEL,AMB,STR) YEL Urine Clarity (CLEAR) CLEAR Urine pH (5.0 - 8.0) 5.5 Ur Specific Hammond (1.001 - 1.035) 1.020 Urine Protein (NEG,<30 MG/DL) TRACE H Urine Ketones (NEG) NEG Urine Nitrite (NEG) NEG Urine Bilirubin (NEG) NEG Urine Urobilinogen (0.1 - 1.0 EU/dl) 0.2 Ur Leukocyte Esterase (NEG) NEG Ur Microscopic SEDIMENT EXAMINED Urine RBC (0 - 5 /HPF) RARE Urine WBC (0 - 2 /HPF) 1-3 H Urine Mucus (FEW,NONE) FEW Urine Hemoglobin (NEG) NEG Urine Glucose (N MG/DL) NEG 04/09 Chemistry Lactic Acid (0.7 - 2.1 mmol/L) Cancelled 2.0 Troponin I (<0.11 ng/ml) 0.02 04/09 04/09 1826 1540 Chemistry Sodium (137 - 145 mmol/L) 142 Potassium (3.5 - 5.1 mmol/L) 3.9 Chloride (98 - 107 mmol/L) 108 H Carbon Dioxide (22 - 30 mmol/L) 27 Anion Gap (5 - 16) 8 BUN (9 - 20 mg/dL) 39 H Creatinine (0.7 - 1.2 mg/dL) 1.1 Estimated GFR (>60 ml/min) > 60 BUN/Creatinine Ratio (7 - 25 %) 35.5 H Glucose (65 - 99 mg/dL) 87 Calcium (8.4 - 10.2 mg/dL) 7.7 L Total Bilirubin (0.2 - 1.3 mg/dL) 0.5 AST (17 - 59 U/L) 14 L ALT (21 - 72 U/L) 37 Alkaline Phosphatase (< 127 U/L) 36 Troponin I (<0.11 ng/ml) < 0.01 Total Protein (6.3 - 8.2 g/dL) 4.8 L Albumin (3.5 - 5.0 g/dL) 2.7 L Globulin (1.9 - 4.2 gm/dL) 2.1 Albumin/Globulin Ratio (1.1 - 2.2 %) 1.3 Coagulation PT (9.4 - 12.5 SEC) 11.9 INR (0.90 - 1.17) 1.13 Hematology CBC w Diff NO MAN DIFF REQ WBC (4.8 - 10.8 /CUMM) 17.1 H RBC (4.70 - 6.10 /CUMM) 3.06 L Hgb (14.0 - 18.0 G/DL) 9.8 L Hct (42 - 52 %) 29.7 L MCV (80.0 - 94.0 FL) 97.2 H MCH (27.0 - 31.0 PG) 32.1 H MCHC (33.0 - 37.0 G/DL) 33.1 RDW (11.5 - 14.5 %) 14.2 Plt Count (130 - 400 /CUMM) 320 MPV (7.4 - 10.4 FL) 8.2 Gran % (42.2 - 75.2 %) 80.2 H Lymphocytes % (20.5 - 51.1 %) 10.5 L Monocytes % (1.7 - 9.3 %) 7.8 Eosinophils % (0 - 5 %) 1.3 Basophils % (0.0 - 2.0 %) 0.2 Absolute Granulocytes (1.4 - 6.5 /CUMM) 13.7 H Absolute Lymphocytes (1.2 - 3.4 /CUMM) 1.8 Absolute Monocytes (0.10 - 0.60 /CUMM) 1.3 H Absolute Eosinophils (0.0 - 0.7 /CUMM) 0.2 Absolute Basophils (0.0 - 0.2 /CUMM) 0
[2017-04-12 15:15] VITALS: BP 120/60
[2017-04-12 22:47] VITALS: BP 120/74
[2017-04-13 06:20] VITALS: BP 116/68
--- NOTE | 2017-04-13 07:26 | PN- Housestaff ---
[facility] 07[facility]: Subjective Follow-up For: Bleeding per rectum s/p colonoscopy Acute blood loss anemia Subjective: No overnight events. Patient remained afebrile overnight. Seen and examined this morning. Patient denied any chest pain, short of breath, nausea, vomiting, chills, fever, abdominal pain and dysuria. Patient didn't have any complaint of urinary retention. Patient denied any melena fresh blood per rectum. If his H& H remained stable we will discharge him and patient will follow Dr. Riddle as an outpatient for the results of biopsies. Review of Systems Constitutional: Reports: no symptoms. EENTM: Reports: no symptoms. Cardiovascular: Reports: no symptoms. Respiratory: Reports: no symptoms. Gastrointestinal: Reports: no symptoms. Genitourinary: Reports: no symptoms. Neurological/Psychological: Reports: no symptoms. Objective Last 24 Hrs of Vital Signs/I&O Vital Signs Date Time Temp Pulse Resp B/P B/P Pulse O2 O2 Flow FiO2 Mean Ox Delivery Rate 04/13 0620 98.4 83 18 116/68 98 Room Air 04/12 2247 98.0 79 20 120/74 98 Room Air 04/12 1515 97.9 80 18 120/60 98 04/12 1304 90 112/58 Intake & Output 04/13 1600 04/13 0800 04/13 0000 Intake Total 480 Output Total 310 880 9783 Balance -600 -300 -720 Intake, Oral 480 Output, Urine 655 218 6181 Patient 181 lb Weight Weight Bed scale Measurement Method Physical Exam General Appearance: Alert, Oriented X3, Cooperative Skin Temp/Moisture Exam: Warm/Dry Sepsis Skin Exam (color): Normal for Ethnicity HEENT: Atraumatic, PERRLA, EOMI Neck: Supple Cardiovascular: Normal S1, Normal S2 Lungs: Clear to Auscultation Abdomen: Soft, No Tenderness Neurological: Normal Speech, Strength at 5/5 X4 Ext, Normal Tone, Sensation Intact Extremities: No Edema Assessment/Plan Assessment: 81 yo Portugese speaking M with h/o HTN, glaucoma, blind in left eye, asthma, ? rectal cancer vs polyp s/p ?resection (7 yrs ago), is here for evaluation of sudden onset multiple episodes of bright red blood per rectum preceded by abdominal cramping. Blood clots+. Patient reports feeling dizzy, lightheaded. While in the ER waiting room, patient had a near-syncopal episode, was pale and diaphoretic. He had about 5-6 episodes of BRBPR while in the ER. Bleeding per rectum status post colonoscopy: -Patient received 4 blood transfusions. No further complaints of bleeding per rectum for now. -We will monitor for any bleeding per rectum. -We will monitor H&H if it's less than 8 we will transfuse him. -Colonoscopy was done by GI that showed irregularly appearing anastomosis at 35 cm from incisors which is the likely source of blood loss and maybe concerning of recurrent malignancy status post biopsies. -Patient will follow the GI for biopsy results. And results will be followed with oncology and surgery. Acute blood loss anemia: -We will follow his H&H -Today H&H is 8.6/25.4. We will repleted and if it's less than 8 we will transfuse him. Perianal fungal infection; -Nilstat powder. -Keep the area dry. DVT prophylaxis: Mechanical only CODE STATUS: Full code Problem List: 1. Lower GI bleed Pain Ratin Pain Location: none Pain Goal: Remain pain free Pain Plan: pain pathway Tomorrow's Labs & Rationales: cbc/bep Edmund Marquez MD 04/13/17 1117: Attending MD Review Statement Attending Statement Attending MD Statement: examined this patient, discuss w/resident/PA/CHART CALCULATOR, agreed w/resident/PA/CHART CALCULATOR, reviewed EMR data (avail) Attending Assessment/Plan: 81M PMH colon cancer s/p resection and anastamosis, HTN, admitted for lower GI bleed s/p endoscopy showing irregular anastamosis site concerning for malignancy recurrence as well as AVMs, initial Hgb drop so monitored. Today patient feels well. He had a dry cough overnight with a clear lung exam and no signs of infection. His Hgb is stable and he's eating well. Plan - Stable for discharge home - Outpatient GI follow up for pathology - Stop ASA on discharge (was on for primary prevention) - Continue remaining home medications
[2017-04-13 09:52] LABS: ABSOLUTE BASOPHIL COUNT 0 /CUMM (0.0-0.2); ABSOLUTE EOSINOPHIL COUNT 0.1 /CUMM (0.0-0.7); ABSOLUTE GRANULOCYTE CT 6.3 /CUMM (1.4-6.5); ABSOLUTE LYMPH COUNT 0.9 /CUMM (1.2-3.4); ABSOLUTE MONOCYTE COUNT 0.6 /CUMM (0.10-0.60); BASOPHIL % 0 % (0.0-2.0); EOSINOPHIL % 1.4 % (0-5); GRANULOCYTE % 79.3 % (42.2-75.2); HEMATOCRIT 25.4 % (42-52); MEAN CORPUSCULAR HGB 31.9 PG (27.0-31.0); MEAN CORPUSCULAR VOLUME 93.7 FL (80.0-94.0); MEAN PLATELET VOLUME 8.9 FL (7.4-10.4); PLATELET COUNT 171 /CUMM (130-400); RBC DISTRIBUTION WIDTH 15.1 % (11.5-14.5); RED BLOOD CELL CT 2.71 /CUMM (4.70-6.10)
--- NOTE | 2017-04-13 11:03 | Patient Discharge Instructions ---
Discharge Instructions General Discharge Information You were seen/treated for: Bleeding per rectum Acute blood loss anemia Watch for these problems: Fresh blood per rectum, melena, abdominal pain, nausea, vomiting, blood in vomitus, shortness of breath and chest pain. If you experience any of his symptoms please come to ED or call your primary care physician. Special Instructions: Follow-up to your primary care physician in one week. Follow-up with your census clerk in 1 week for results of the biopsies that were taken during the colonoscopy. Aspirin was stopped considering bleeding per rectum talk to your primary care physician to resume it if H&H remains stable. Patient's amlodipine was stopped considering his blood pressure on the lower side. Patient was instructed to follow primary care physician and if his blood pressure is on the higher side, primary care can resume the blood pressure medication. Diet Recommended Diet: Regular Activity Activity Self Limited: Yes Acute Coronary Syndrome Inclusion Criteria At DC or during hospital stay patient has or had the following: ACS DIAGNOSIS No Discharge Core Measures Meds if any: Prescribed or Continued at Discharge Meds if any: NOT Prescribed or Continued at Discharge Congestive Heart Failure Inclusion Criteria At DC or during hospital stay patient has or had the following: CHF DIAGNOSIS No Discharge Core Measures Meds if any: Prescribed or Continued at Discharge Meds if any: NOT Prescribed or Continued at Discharge Cerebrovascular accident Inclusion Criteria At DC or during hospital stay patient has or had the following: CVA/TIA Diagnosis No Discharge Core Measures Meds if any: Prescribed or Continued at Discharge Meds if any: NOT Prescribed or Continued at Discharge Venous thromboembolism Inclusion Criteria VTE Diagnosis No VTE Type NONE VTE Confirmed by (Test) NONE Discharge Core Measures - Per Current guidelines, there needs to be overlap - treatment for the first 5 days of Warfarin therapy. - If discharged on Warfarin prior to 5 days of - overlap therapy, the patient will need to be - assessed for post discharge needs including - *Post discharge parental anticoagulation - *Warfarin and/or parental anticoagulation education - *Follow up date to check INR post discharge At least 5 days overlap therapy as Inpatient No Meds if any: Prescribed or Continued at Discharge Note: Overlap Therapy is Warfarin and Anticoagulant Meds if any: NOT Prescribed or Continued at Discharge
[2017-04-13] MEDS ORDERED: NYSTATIN15 G1 TOP (13:26)
[2017-04-13] MEDS ORDERED: GUAIFENESI100 MG/5 M PO (13:26)
--- NOTE | 2017-04-13 13:43 | Discharge Summary ---
Visit Information Visit Dates Admission Date: 04/09/17 Discharge Date: 04/13/17 Hospital Course Course Attending Physician: Edmund Marquez MD Primary Care Physician: Cameron Guerrero MD. Hospital Course: 81 yo Portuge speaking M with h/o HTN, glaucoma, blind in left eye, asthma, ? rectal cancer vs polyp s/p ?resection (7 yrs ago), is here for evaluation of sudden onset multiple episodes of bright red blood per rectum preceded by abdominal cramping. Blood clots+. Patient reports feeling dizzy, lightheaded. While in the ER waiting room, patient had a near-syncopal episode, was pale and diaphoretic. He had about 5-6 episodes of BRBPR while in the ER. Bleeding per rectum status post colonoscopy: Patient was admitted to ICU with complaint of bleeding per rectum. Gastroenterology consult was placed. Colonoscopy was done that didn't show any active bleeding spot. Colonoscopy showed a regular appearing surgical anastomosis which is likely source of blood loss and there was concern of recurrent malignancy as patient had colon cancer status post resection anastomosis. Biopsies were taken during colonoscopy. Patient received 4 units of packed red blood cell during the hospital stay. His H&H was monitored that remained stable more than 8. Patient was down graded to general medicine. Patient was instructed to follow gastroenterology as outpatient for biopsy results. He was also instructed to follow general surgery if the biopsy results are positive for recurrent malignancy. Acute blood loss anemia: Patient's H&H remained stable above 8 after the transfer to general medicine floor and gastroenterology cleared the patient to be dischared. Aspirin was discontinued considering recent H&H drop. Patient was instructed to follow GI as outpatient. History of hypertension: Patient's amlodipine was discontinued considering his blood pressure is on the lower side. Patient was instructed to follow his primary care physician as soon as possible to resume his antihypertensive medication if his blood pressure starts elevating. Perianal fungal infection: Nilstate cream was applied and patient was instructed to keep the area dry. DVT prophylaxis: Mechanical only CODE STATUS: Full code Allergies: Coded Allergies: No Known Allergies (04/09/17) Significant Procedures: Colonoscopy Procedure Medical History: unchanged (see meditech consult) Mental Status: alert/oriented Heart/Lung Eval Prior to Sedation: within normal limits Candidate for Sedation? Yes Date of Last Colonoscopy: Pt uncertain, but he apparently had colon surgery about 7 years ago. Procedure Date: 04/10/17 Procedure Type: colon with biopsy and APC cautery Talent Rep: Ray Riddle MD ASA Classification: III Indications: Hematochezia. Instrument (Colonoscope): single channel Meds Received: MAC Patient's Tolerance: good Complications: none Extent Reached: cecum Prep: good Procedure: The risks of a colonoscopy was explained to the patient including, but not limited to, the risks of perforation, bleeding and/or a missed lesion and then written informed consent was obtained. After getting written informed consent the patient was placed in the left lateral decubitus position with pulse oximetry, cardiac monitoring, and supplemental oxygen was given. IV sedation was given until the desired effect was achieved. A rectal exam was performed which was normal. A high definition variable stiffness Olympus colonoscope was then inserted into the anus and advanced to the cecum with little difficulty. Retroflexed views were obtained in both the right colon and rectum and photodocumentation was obtained. Close inspection of the colonic mucosa was performed on insertion and withdrawal of the colonoscope with a withdrawal time that was adequate in length to closely inspect all folds and ignacio of the colon. Findings: The surgical anastomosis was located at approximate 35 cm from the incisors and it was markedly friable, and irregular in appearance and while there was no discrete mass the endoscopic findings were suggestive of a malignancy. Multiple biopsies were obtained from the irregular-appearing mucosa of the surgical anastomosis and were sent to pathology for further evaluation. There is a nonbleeding AVM in the cecum which was ablated using APC without any significant bleeding ensuing with the ablation. There were a few scattered diverticula appreciated in the descending colon proximal to the surgical anastomosis. The remainder the visualized colonic mucosa was grossly normal in appearance. Rectum views in the rectum revealed small internal hemorrhoids. Retroflexed views in the right colon did not reveal any polyps. Impression: 1. Irregular-appearing surgical anastomosis at 35 cm from the incisors which is the likely source of blood loss and is concerning for recurrent malignancy status post biopsies. 2. 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 3. Mild diverticulosis. 4. Small internal hemorrhoids. Recommendations: 1. His diet should be advanced as tolerated. 2. Is safe to transfer him out of the ICU. 3. The pathology results should be followed up as an outpatient. 4. If the pathology results are consistent with malignancy he should be referred to a surgeon and to an oncologist. 5. Hold asa for 72 hours and if no re-bleeding safe to restart it if it is medically indicated. Pertinent Lab Results: Echocardiogram on 04/09/2017: CONCLUSIONS 1. Hyperdynamic EF of 80% with impaired LV relaxation. Chest x-ray on 04/09/2017: IMPRESSION: 1. No acute pulmonary disease. 2. The aortic arch is uncoiled and is possibly dilated, but an accurate measurement of aorta size cannot be provided. Abdomen/pelvis CTA on 04/09/17; IMPRESSION: No aortic aneurysm demonstrable. Scattered areas of noncalcified and calcified plaque. No evidence for acute thoracic, abdominal nor pelvic inflammatory or infectious processes. Hiatal hernia. Status post cholecystectomy. 3-D reconstructions have not been performed at this time. This examination will be reviewed by an Interventional Radiologist and an addendum place. Chest/thoracic CTA on 04/09/2017: IMPRESSION: No aortic aneurysm demonstrable. Scattered areas of noncalcified and calcified plaque. No evidence for acute thoracic, abdominal nor pelvic inflammatory or infectious processes. Hiatal hernia. Status post cholecystectomy. 3-D reconstructions have not been performed at this time. This examination will be reviewed by an Interventional Radiologist and an addendum place. WBC count 8.0, hemoglobin 8.6, hematocrit 25.4, platelet count 171, sodium 139, potassium 3.7, creatinine 0.8, BUN 9 Disposition Summary Disposition Principal Diagnosis: Bleeding per rectum status post colonoscopy Acute blood loss anemia Additional Diagnosis: Hypertension Asthma Hyperlipidemia Colon cancer s/p resection anastomosis Discharge Disposition: home or self care Discharge Instructions General Discharge Information Code Status: Full Code Patient's Diet: Regular diet Patient's Activity: Self limited Follow-Up Instructions/Appts: Follow up with your primary care physician in one week. Follow-up with your machine hamper maker for biopsy results as outpatient. Aspirin was discontinued considering patient's recent history of bleeding per rectum. Medications at Discharge Discharge Medications: Stop taking the following medications: Aspirin (Ecotrin*) 81 MG TABLET.DR ORAL DAILY Amlodipine Besylate (Amlodipine Besylate) 5 MG TABLET ORAL DAILY Qty = 30 Continue taking these medications: Ergocalciferol (Vitamin D2) (Vitamin D2) 50,000 UNIT CAPSULE 1 Capsule ORAL Once a Week Qty = 4 Comments: NOT TAKEN IN HOSPITAL Naproxen (Naproxen) 500 MG TABLET 1 Tablet ORAL TWICE DAILY Qty = 60 Comments: NOT TAKEN IN HOSPITAL Atorvastatin Calcium (Atorvastatin Calcium) 10 MG TABLET 1 Tablet ORAL DAILY Qty = 30 Comments: LAST TAKEN: 04/12/17 @ 5 PM Albuterol Sulfate (Ventolin Hfa) 90 MCG HFA.AER.AD 1 Puff Inhale through mouth THREE TIMES DAILY as needed for RESP. Qty = 18 Comments: NOT TAKEN IN HOSPITAL Oxycodone HCl/Acetaminophen (Oxycodone-Acetaminophen 10-325) 10 MG-325 MG TABLET 1 Tablet ORAL 4XDAILY as needed for PAIN Qty = 30 Comments: NOT TAKEN IN HOSPITAL Dorzolamide HCl/Timolol Maleat (Dorzolamide-Timolol Eye Drops) 22.3 MG-6.8 MG/ML DROPS 1 Drop Both Eyes TWICE DAILY Qty = 10 Comments: NOT TAKEN IN HOSPITAL Cyclosporine (Restasis) 0.05 % DROPERETTE 1 Drop Both Eyes TWICE DAILY Qty = 60 Comments: LAST TAKEN: 04/13/17 @ 10 AM Start taking the following new medications: Guaifenesin (Guaifenesin) 100 MG/5 ML LIQUID 10 Milliliters ORAL EVERY SIX HOURS NEEDED as needed for COUGH Qty = 1 No Refills Nystatin (Nystatin) 100,000 UNIT/GRAM CREAM..G. 1 Application On the skin TWICE DAILY Qty = 1 No Refills Copies To: Cesar DWYER,Cameron Grayson; Venkatesh DWYER,Ray
[2017-04-13 14:13] VITALS: BP 120/80
== END 2017-04-13 17:35 | DRG 920 ==
LOC: ERH 13:58 → 2NA 17:38 → ERHI 17:38 → CRI 17:38 → EDBEDREQ 18:31 → ENRESERV 19:05 → CRI 20:13 → 2NA 04-10 22:45 → ENPENDDIS 04-13 14:54 → 2NA 04-13 17:35
PROVIDERS: Emergency Medicine; Internal Medicine Endocrinology, Diabetes & Metabolism; Internal Medicine Infectious Disease; Student in an Organized Health Care Education/Training Program
PROC: 30233N1 Transfusion of Nonautologous Red Blood Cells into Peripheral Vein, Percutaneous Approach (ICD-10-PCS; 2017-04-09)
PROC: 0DBM8ZX Excision of Descending Colon, Via Natural or Artificial Opening Endoscopic, Diagnostic (ICD-10-PCS; principal; 2017-04-10)
PROC: 0D5H8ZZ Destruction of Cecum, Via Natural or Artificial Opening Endoscopic (ICD-10-PCS; 2017-04-10)
DX: K91.840 Postprocedural hemorrhage of a digestive system organ or structure following a digestive system procedure (principal); D62 Acute posthemorrhagic anemia; I95.9 Hypotension, unspecified; E86.1 Hypovolemia; D72.829 Elevated white blood cell count, unspecified; E55.9 Vitamin D deficiency, unspecified; E78.5 Hyperlipidemia, unspecified; R55 Syncope and collapse; K64.8 Other hemorrhoids; Z79.82 Long term (current) use of aspirin; I10 Essential (primary) hypertension; Z90.49 Acquired absence of other specified parts of digestive tract; Z85.038 Personal history of other malignant neoplasm of large intestine; Z79.891 Long term (current) use of opiate analgesic; H54.62 Unqualified visual loss, left eye, normal vision right eye; Z79.51 Long term (current) use of inhaled steroids; Z87.891 Personal history of nicotine dependence; K46.9 Unspecified abdominal hernia without obstruction or gangrene; Z98.0 Intestinal bypass and anastomosis status; Y83.2 Surgical operation with anastomosis, bypass or graft as the cause of abnormal reaction of the patient, or of later complication, without mention of misadventure at the time of the procedure; K55.20 Angiodysplasia of colon without hemorrhage
CPT/HCPCS: 2NASP; CCU; 36415; 71045; 74174; 81001; 82436; 86920; 87804; 87804-59; 88305; 93005; 93010; 93306; 96361; 96374; 97116-GO; 97161-GP; 99291; J3490; P9016

== ENCOUNTER 2017-09-11 23:39 | Inpatient (IN) | payer OTHER ==
[~2017-09-11] VITALS: Ht 167.6 cm; Wt 79.1 kg
[~2017-09-11 23:39] MED LIST changes: +AMLODIPINE BESYL5 M1 PO; +ATORVASTATIN CA10 M1 PO; +CLARITHROMYCIN500 M2 PO; +DORZOLAMIDE-TIM10 ML OU; +GUAIFENESI100 MG/5 M PO; +NAPROXEN500 M2 PO; +NYSTATIN15 G1 TOP; +OXYCODONE-ACET1 EAC1 PO; +RESTASIS1 EACH OU; +VENTOLIN HFA18 GM INH; +VITAMIN D250000 UNIT PO
--- NOTE | 2017-09-12 00:33 | ED GI/GU/ABDOMINAL COMPLAINT ---
History of Present Illness General Chief Complaint: Abdominal Pain/Flank Pain Stated Complaint: PT C/O ABD PAIN Source: patient Exam Limitations: no limitations Vital Signs & Intake/Output Vital Signs & Intake/Output Vital Signs Date Time Temp Pulse Resp B/P B/P Pulse O2 O2 Flow FiO2 Mean Ox Delivery Rate 09/12 004 98.9 72 20 175/79 98 Room Air 09/12 0040 98.8 175/79 09/12 0034 98 Room Air Room Air 09/12 0009 98.2 78 16 144/80 98 Room Air Room Air Allergies Coded Allergies: No Known Allergies (04/09/17) Reconcile Medications Albuterol Sulfate (Ventolin Hfa) 90 MCG HFA.AER.AD 1 PUF INH TID PRN RESP. ( Reported) Amlodipine Besylate 5 MG TABLET 1 TAB PO DAILY htn (Reported) Atorvastatin Calcium 10 MG TABLET 1 TAB PO DAILY CHOLESTEROL (Reported) Cyclosporine (Restasis) 0.05 % DROPERETTE 1 GTT OU BID BOTH EYES (Reported) Dorzolamide HCl/Timolol Maleat (Dorzolamide-Timolol Eye Drops) 22.3 MG-6.8 MG/ML DROPS 1 GTT OU BID BOTH EYES (Reported) Ergocalciferol (Vitamin D2) (Vitamin D2) 50,000 UNIT CAPSULE 1 CAP PO QW SUPPLEMENT (Reported) Guaifenesin 100 MG/5 ML LIQUID 10 ML PO Q6P PRN COUGH Naproxen 500 MG TABLET 1 TAB PO BID PAIN/INFLAMMATION (Reported) Nystatin 100,000 UNIT/GRAM CREAM..G. 1 LATOSHA TOP BID Fungal infection Oxycodone HCl/Acetaminophen (Oxycodone-Acetaminophen 10-325) 10 MG-325 MG TABLET 1 TAB PO 4XDAILY PRN PAIN (Reported) Triage Note: PT TO TRIAGE WITH MID ABD PAINS TARTING TODAY. ESTONIAN IS PATIENTS SECOND LANGUAGE AND HE IS HAVING TROUBLE EXPLAINING. PT DENIES CHEST PAIN. DENIES N/V. DENIES FEVERS. STATES HE HAS NOT HAD BM IN 3 DAYS Triage Nurses Notes Reviewed? yes Duration: hour(s): Timing: recent history Location: generalized abdomen Radiation: no radiation Activities at Onset: none Prior Abdominal Problems: similar symptoms Associated Symptoms: abdominal pain HPI: 82 yo gentleman h/o cholecystectomy 6 months ago, bowel resection for cancer 3 months ago, presents with increased abdominal distension and abdominal pain that began this evening. Past History Travel History Traveled to [place] past 21 day No Medical History Any Pertinent Medical History? see below for history Neurological: NONE EENT: NONE Cardiovascular: hyperlipidemia Respiratory: asthma Gastrointestinal: COLON CA Hepatic: NONE Renal: NONE Musculoskeletal: NONE Psychiatric: NONE Endocrine: NONE Blood Disorders: NONE Cancer(s): colon/rectal cancer PRODUCT TRAINER/Reproductive: NONE History of MRSA: No History of VRE: No History of CDIFF: No Tetanus Vaccine: 10/18/14 Surgical History Surgical History: cholecystectomy, colon resection Psychosocial History Who do you live with Patient/Self What is your primary language Stateless Tobacco Use: Never used Family History Family History, If Any: FATHER FH: tuberculosis Hx Contributory? No Review of Systems Review of Systems Constitutional: Reports: no symptoms. EENTM: Reports: no symptoms. Respiratory: Reports: no symptoms. Cardiovascular: Reports: no symptoms. GI: Reports: no symptoms. Genitourinary: Reports: no symptoms. Musculoskeletal: Reports: no symptoms. Skin: Reports: no symptoms. Neurological/Psychological: Reports: no symptoms. Hematologic/Endocrine: Reports: no symptoms. Immunologic/Allergic: Reports: no symptoms. All Other Systems: Reviewed and Negative Physical Exam Physical Exam General Appearance: well developed/nourished, mild distress Head: atraumatic, normal appearance Eyes: Bilateral: normal appearance. Ears, Nose, Throat, Mouth: moist mucous membrane Neck: normal inspection, supple, full range of motion Respiratory: normal breath sounds, chest non-tender, no respiratory distress, quiet respiration, lungs clear Cardiovascular: regular rate/rhythm Gastrointestinal: mild-moderate distension, diminished bowel sounds Back: normal inspection, normal range of motion Extremities: normal range of motion Neurologic/Psych: no motor/sensory deficits, awake, alert, oriented x 3 Skin: intact, normal color, warm/dry Core Measures ACS in differential dx? No Sepsis Present: No Sepsis Focused Exam Completed? No Progress Differential Diagnosis: ileus vs constipation vs obstruction vs other. Plan of Care: Orders Procedure Date/time Status Admit to inpatient 09/12 0213 Active URINALYSIS 09/12 0142 Active TROPONIN LEVEL 09/11 2344 Complete LIPASE 09/11 2344 Complete HEPATIC FUNCTION PANEL 09/11 2344 Complete CBC WITHOUT DIFFERENTIAL 09/11 2344 Complete BASIC METABOLIC PANEL 09/11 2344 Complete AMYLASE 09/11 2344 Complete EKG 09/11 2344 Active Laboratory Tests 09/12/17 0005: Anion Gap 12, Estimated GFR 53 L, BUN/Creatinine Ratio 19.2, Glucose 120 H, Calcium 9.3, Total Bilirubin 1.1, Direct Bilirubin 0.2, AST 16 L, ALT 33, Alkaline Phosphatase 55, Troponin I < 0.01, Total Protein 6.5, Albumin 4.0, Amylase 41, Lipase 119, CBC w Diff NO MAN DIFF REQ, RBC 4.24 L, MCV 93.9, MCH 32.0 H, MCHC 34.0, RDW 14.7 H, MPV 8.9, Gran % 68.5, Lymphocytes % 18.4 L, Monocytes % 9.5 H, Eosinophils % 3.4, Basophils % 0.2, Absolute Granulocytes 4.1, Absolute Lymphocytes 1.1 L, Absolute Monocytes 0.6, Absolute Eosinophils 0.2, Absolute Basophils 0 Diagnostic Imaging: Viewed by Me: CT Scan. Discussed w/RAD: CT Scan. Radiology Impression: PATIENT: MIKA BLANC PRESENT AGE: 82 PATIENT ACCOUNT NO: [id number] : 37 LOCATION: [facility] ORDERING PHYSICIAN: Joaquín Holland MD SERVICE DATE: 09/12/17 EXAM TYPE: CAT - CT ABD & PELVIS W/O IV CONTRAS EXAMINATION: CT ABDOMEN AND PELVIS WITHOUT CONTRAST CLINICAL INFORMATION: Abdominal distention. COMPARISON: April 09, 2017. TECHNIQUE: Contiguous axial thin section helical images of the abdomen and pelvis were performed without oral or IV contrast. The data set was reformatted in the coronal and sagittal planes and reviewed on an independent workstation. DLP: 526 mGy-cm. FINDINGS: There is mild dependent bibasilar atelectasis. The visualized lung bases are otherwise clear. The visualized portions of the heart are unremarkable. There is a small hiatal hernia. The liver is of normal size and attenuation without focal lesions nor intrahepatic biliary ductal dilation. The patient is status post cholecystectomy. Surgical clips are present. The spleen, pancreas, adrenal glands are unremarkable. Both kidneys are of normal size and attenuation without hydronephrosis or nephrolithiasis. There is a stable 3.4 cm right upper pole renal cyst. There is mild bilateral perinephric stranding. There is no abdominal free fluid. There is neither mesenteric nor retroperitoneal lymphadenopathy. There is an umbilical hernia containing fat and a small portion of bowel. Proximal to this, there are several prominent loops of small bowel. Otherwise, unremarkable unopacified loops of small and large bowel are present. A normal appendix is present. There is no pelvic free fluid. The urinary bladder is partially filled with equivocal diffuse wall thickening. The prostate gland is enlarged measuring approximately 6.6 x 6.1 x 4.0 cm. There is neither pelvic nor inguinal lymphadenopathy. Bone windows: Neither sclerotic nor lytic bone lesions are identified. IMPRESSION: Umbilical hernia containing fat and a small amount of bowel. There are dilated loops of bowel proximal to this indicative of a partial small bowel obstruction. Partially filled urinary bladder with equivocal wall thickening. The appearance of wall thickening could be secondary to the low bladder volume and the enlarged prostate gland. Correlate with patient history and consider correlation with your analysis. DICTATED BY: Frank Bal MD DATE/TIME DICTATED:09/12/17118 REFRIGERATION ENGINE OPERATOR:JOANNE DATE/TIME TRANSCRIBED:09/12/17118 CONFIDENTIAL, DO NOT COPY WITHOUT APPROPRIATE AUTHORIZATION. <Electronically signed in Other Vendor System> SIGNED BY: Frank Bal MD 09/12/17 0133 Initial ED EKG: normal axis, normal intervals, normal p-waves, normal QRS complex, normal sinus rhythm Departure Departure Disposition: HOME OR SELF CARE Condition: Stable Clinical Impression Primary Impression: Partial small bowel obstruction Referrals: Cesar DWYER,Cameron Grayson (PCP/Family) Departure Forms: Customer Survey General Discharge Information Admission Note Spoke With: Rimma DWYER,Sushant N. Documentation of Exam: Documentation of any treatments & extenuating circumstances including Concerns Regarding Discharge (functional status, medication knowledge or non-compliance, living conditions, etc.) that warrant an admission rather than observation: pt with partial small bowel obstruction... give his surgeries and comorbidities, pt merits bowel rest, iv fluids, pain meds, consider ng tube.
[2017-09-12 00:38] LABS: ABSOLUTE BASOPHIL COUNT 0 /CUMM (0.0-0.2); ABSOLUTE EOSINOPHIL COUNT 0.2 /CUMM (0.0-0.7); ABSOLUTE GRANULOCYTE CT 4.1 /CUMM (1.4-6.5); ABSOLUTE LYMPH COUNT 1.1 /CUMM (1.2-3.4); ABSOLUTE MONOCYTE COUNT 0.6 /CUMM (0.10-0.60); BASOPHIL % 0.2 % (0.0-2.0); EOSINOPHIL % 3.4 % (0-5); GRANULOCYTE % 68.5 % (42.2-75.2); HEMATOCRIT 39.8 % (42-52); MEAN CORPUSCULAR VOLUME 93.9 FL (80.0-94.0); MEAN PLATELET VOLUME 8.9 FL (7.4-10.4); PLATELET COUNT 258 /CUMM (130-400); RBC DISTRIBUTION WIDTH 14.7 % (11.5-14.5); RED BLOOD CELL CT 4.24 /CUMM (4.70-6.10); WHITE BLOOD CELL COUNT 5.9 /CUMM (4.8-10.8)
--- NOTE | 2017-09-12 01:33 | CT SCAN REPORT ---
EXAMINATION: CT ABDOMEN AND PELVIS WITHOUT CONTRAST CLINICAL INFORMATION: Abdominal distention. COMPARISON: April 09, 2017. TECHNIQUE: Contiguous axial thin section helical images of the abdomen and pelvis were performed without oral or IV contrast. The data set was reformatted in the coronal and sagittal planes and reviewed on an independent workstation. DLP: 526 mGy-cm. FINDINGS: There is mild dependent bibasilar atelectasis. The visualized lung bases are otherwise clear. The visualized portions of the heart are unremarkable. There is a small hiatal hernia. The liver is of normal size and attenuation without focal lesions nor intrahepatic biliary ductal dilation. The patient is status post cholecystectomy. Surgical clips are present. The spleen, pancreas, adrenal glands are unremarkable. Both kidneys are of normal size and attenuation without hydronephrosis or nephrolithiasis. There is a stable 3.4 cm right upper pole renal cyst. There is mild bilateral perinephric stranding. There is no abdominal free fluid. There is neither mesenteric nor retroperitoneal lymphadenopathy. There is an umbilical hernia containing fat and a small portion of bowel. Proximal to this, there are several prominent loops of small bowel. Otherwise, unremarkable unopacified loops of small and large bowel are present. A normal appendix is present. There is no pelvic free fluid. The urinary bladder is partially filled with equivocal diffuse wall thickening. The prostate gland is enlarged measuring approximately 6.6 x 6.1 x 4.0 cm. There is neither pelvic nor inguinal lymphadenopathy. Bone windows: Neither sclerotic nor lytic bone lesions are identified. IMPRESSION: Umbilical hernia containing fat and a small amount of bowel. There are dilated loops of bowel proximal to this indicative of a partial small bowel obstruction. Partially filled urinary bladder with equivocal wall thickening. The appearance of wall thickening could be secondary to the low bladder volume and the enlarged prostate gland. Correlate with patient history and consider correlation with your analysis.
[2017-09-12] MEDS ORDERED: AMLODIPINE BESYL5 M1 PO (02:09)
[2017-09-12 03:30] VITALS: BP 162/90
[2017-09-12 09:18] LABS: ABSOLUTE BASOPHIL COUNT 0 /CUMM (0.0-0.2); ABSOLUTE EOSINOPHIL COUNT 0.2 /CUMM (0.0-0.7); ABSOLUTE LYMPH COUNT 0.9 /CUMM (1.2-3.4); ABSOLUTE MONOCYTE COUNT 0.5 /CUMM (0.10-0.60); BASOPHIL % 0.3 % (0.0-2.0); EOSINOPHIL % 4.7 % (0-5); GRANULOCYTE % 63.8 % (42.2-75.2); HEMATOCRIT 36.8 % (42-52); MEAN CORPUSCULAR HGB 31.5 PG (27.0-31.0); MEAN CORPUSCULAR HGB CONC 34.1 G/DL (33.0-37.0); MEAN CORPUSCULAR VOLUME 92.5 FL (80.0-94.0); MEAN PLATELET VOLUME 8.3 FL (7.4-10.4); PLATELET COUNT 223 /CUMM (130-400); RED BLOOD CELL CT 3.98 /CUMM (4.70-6.10); WHITE BLOOD CELL COUNT 4.7 /CUMM (4.8-10.8)
--- NOTE | 2017-09-12 11:01 | PN- General Surgery ---
Subjective Subjective: Awake, alert Speaks a little irish - portugese Complaining of pain - improved from yesterday, crampy, mostly in r side abdomen No nausea Objective Vital Signs and I&Os Vital Signs Date Time Temp Pulse Resp B/P B/P Pulse O2 O2 Flow FiO2 Mean Ox Delivery Rate 09/12 0920 162/90 09/12 0330 97.6 52 18 162/90 97 Room Air 09/12 0041 98.9 72 20 175/79 98 Room Air 09/12 0040 98.8 175/79 09/12 0034 98 Room Air Room Air 09/12 0009 98.2 78 16 144/80 98 Room Air Room Air Intake & Output 09/12 1600 09/12 0800 09/12 0000 09/11 1600 09/11 0800 09/11 0000 Intake Total 1400 Output Total 300 Balance 1100 Intake, IV 1400 Intake, Oral 0 Number 250 Bowel Movements Output, Urine 300 Patient 180 lb Weight Weight Bed scale Measurement Method Physical Exam: General: alert and oriented times three Chest: clear anteriorly bilaterally, RRR Abd: soft, nondistended, hypoactive bs, umbilical hernia - reduced Ext: warm, no edema Current Medications: Current Medications Sig/Mark Start time Last Medication Dose Route Stop Time Status Admin Acetaminophen 1,000 MG Q6P PRN 09/12 0245 AC N/A 1 UNIT IV Acetaminophen 0 .STK-MED ONE 09/12 0111 DC IV Acetaminophen 1,000 MG ONCE ONE 09/12 0100 DC 09/12 N/A 1 UNIT IV 09/12 0114 0120 Albuterol Sulfate 1 PUF TID PRN 09/12 0230 AC INH Amlodipine Besylate 5 MG DAILY 09/12 09 AC 09/12 PO 0920 Atorvastatin Calcium 10 MG DAILY 09/12 0900 AC 09/12 PO 0920 Cyclosporine 1 GTT Q12 09/12 0900 AC 09/12 OPH 0918 Dextrose/Sodium 1,000 ML Q10H 09/12 0245 AC 09/12 Chloride IV 0307 Dorzolamide HCl 1 GTT BID 09/12 09 AC 09/12 OPH 0918 Heparin Sodium 5,000 UNIT Q8 09/12 0600 AC 09/12 (Porcine) SC 0602 Morphine Sulfate 2 MG Q4P PRN 09/12 0245 AC IV Ondansetron HCl 4 MG Q6P PRN 09/12 0245 AC IV Sodium Chloride 1,000 ML BOLUS ONE 09/12 0115 DC 09/12 IV 09/12 0214 0120 Timolol Maleate 1 GTT BID 09/12 0900 AC OPH Assessment/Plan Assessment/Plan 82yo male admitted with sbo/umbilical hernia - await bowel function continue npo/ivf for now pain management as needed hep sc/alps for dvt ppx await Dr Shanks recommendations Core Measures Venous Thromboembolism VTE Risk Factors Acute Medical Illness No Mechanical VTE Prophylaxis d/t N/A MechProphylax Ordered No VTE Pharm Prophylaxis d/t NA PharmProphylax ordered
[2017-09-12 14:22] VITALS: BP 144/78
--- NOTE | 2017-09-12 18:57 | History & Physical Pre-Op ---
See Addendum General Information and HPI Source of Information: patient, old records History of Present Illness: CC: abdominal pain HPI: 82 yo non-diabetic ex-smoker, here Nvaeed for GIB, Hx of colectomy, historical details limited bc of language but he came to ER earlier today for abdom pain for one day, no N/V/D/F/C, feels better now, says a doctor once told him he needs "operation" for umbilical hernia. Also c/o lower back pain, wants to know why. Denies straining like : constip, hvy lfting, cough, though has asthma, or diff voiding. No unusual meals recently. Otherwise no changes bowel habits, weight or appetite. I've reviewed the PFSH. No history of GERD, PUD, bleeding problems, heart disease or issues with anesthesia. Allergies/Medications Allergies: Coded Allergies: No Known Allergies (04/09/17) Home Med list Albuterol Sulfate (Ventolin Hfa) 90 MCG HFA.AER.AD 1 PUF INH TID PRN RESP. ( Reported) Amlodipine Besylate 5 MG TABLET 1 TAB PO DAILY htn (Reported) Atorvastatin Calcium 10 MG TABLET 1 TAB PO DAILY CHOLESTEROL (Reported) Cyclosporine (Restasis) 0.05 % DROPERETTE 1 GTT OU BID BOTH EYES (Reported) Dorzolamide HCl/Timolol Maleat (Dorzolamide-Timolol Eye Drops) 22.3 MG-6.8 MG/ML DROPS 1 GTT OU BID BOTH EYES (Reported) Ergocalciferol (Vitamin D2) (Vitamin D2) 50,000 UNIT CAPSULE 1 CAP PO QW SUPPLEMENT (Reported) Guaifenesin 100 MG/5 ML LIQUID 10 ML PO Q6P PRN COUGH Naproxen 500 MG TABLET 1 TAB PO BID PAIN/INFLAMMATION (Reported) Nystatin 100,000 UNIT/GRAM CREAM..G. 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 Home Who Do You Live With? self Smoking Status: Former Smoker Functional Ability ADLs Independent: dressing, eating, toileting, bathing. Ambulation: independent Review of Systems Review of Systems: Constitutional: No fever, sweats or weight loss ENMT: No sore throat Cardiovascular: No chest pain, palpitations or leg swelling Respiratory: No shortness of breath, cough, or sputum or dyspnea on exertion GI: No GERD or bleeding per rectum : No dysuria or hematuria Musculoskeletal: No new muscle weakness, bone or joint pain Skin / Breast: No jaundice, rashes or itching Psychiatric: No history of drug or alcohol abuse no depression or anxiety Hematologic / lymphatic system: had GIB 5mos ago but no more problems with excessive bleeding, bruising, or blood clots Exam & Diagnostic Data Last 24 Hrs of Vital Signs/I&O I rev Vital Signs Date Time Temp Pulse Resp B/P B/P Pulse O2 O2 Flow FiO2 Mean Ox Delivery Rate 09/12 1422 97.8 62 20 144/78 97 09/12 0920 162/90 09/12 0330 97.6 52 18 162/90 97 Room Air 09/12 0041 98.9 72 20 175/79 98 Room Air 09/12 0040 98.8 175/79 09/12 0034 98 Room Air Room Air 09/12 0009 98.2 78 16 144/80 98 Room Air Room Air I rev Intake & Output 09/12 1600 09/12 0800 09/12 0000 Intake Total 700 1400 Output Total 725 300 Balance -25 1100 Intake, IV 600 1400 Intake, Oral 100 0 Number 250 Bowel Movements Output, Urine 725 300 Patient 180 lb Weight Weight Bed scale Measurement Method Physical Exam: Constitutional: pleasant, no acute distress, conversant Eyes: sclera anicteric ENMT: ears and nose atraumatic, moist mucous membranes, good dentition, no lip lesions Neck: Supple, trachea is midline, no cervical or supraclavicular adenopathy and no palpable thyromegaly Cardiovascular: S1, S2, no murmurs, no peripheral edema Respiratory: clear to auscultation with normal respiratory effort and no intercostal retractions GI: abdomen soft, nontender, nondistended, no palpable hepatosplenomegaly Ventral incis umbilical hernia reducible NT no erythema, 2 cm defect Extremities / lymphatics: symmetrically warm, free range of motion no peripheral edema, no cervical, supraclavicular, axillary, or inguinal adenopathy Musculoskeletal: Did not evaluate gait and station, no digital cyanosis, good muscle strength and tone no atrophy, motor grossly 5 out of 5 throughout Skin: no jaundice, no rashes warm, nondiaphoretic, no areas of erythema or induration Psychiatric: mood and affect are appropriate and alert and oriented to person place and time Assessment/Plan Assessment/Plan: I rev CT on PACS myself from today and from as bowel and a ventral incisional umbilical hernia both times but it's more dilated swollen this time Impression: 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 For now bowel rest NPO, IV fluids until flatus or bowel movement, if he doesn't improve may need to do a multiview x-ray. Not sure what the lower back pain is might be referred somehow from the initial obstruction. As Ranked By This Provider Problem List: 1. Ventral incisional hernia with obstruction 2. SBO (small bowel obstruction)
[2017-09-12 21:36] VITALS: BP 146/80
[2017-09-13 06:20] VITALS: BP 128/74
--- NOTE | 2017-09-13 08:19 | PN- General Surgery ---
Subjective Subjective: Patient in bed, language barrier as patient speaks primarily Filipino, limited Spanish. Still n.p.o. Denies flatus or bowel movement. Voiding. Patient states he has not been ambulating much Minimal abdominal pain at rest Objective Vital Signs and I&Os Vital Signs Date Time Temp Pulse Resp B/P B/P Pulse O2 O2 Flow FiO2 Mean Ox Delivery Rate 09/14 619 98.0 76 18 128/74 94 Room Air 09/12 2136 98.4 68 18 146/80 96 09/12 1422 97.8 62 20 144/78 97 09/12 0920 162/90 Intake & Output 09/13 1600 09/13 0800 09/13 0000 09/12 1600 09/12 0800 09/12 0000 Intake Total 600 373 522 5493 Output Total 400 850 725 300 Balance 200 -550 -25 1100 Intake, IV 600 781 087 7680 Intake, Oral 0 0 100 0 Number 250 Bowel Movements Output, Urine 400 850 725 300 Patient 180 lb Weight Weight Bed scale Measurement Method Physical Exam: Generalno acute distress Respirationsclear Cardiacregular rate and rhythm Abdomensoftly distended, positive bowel sounds, tender in epigastric area and right upper quadrant on palpation Current Medications: Current Medications Sig/Mark Start time Last Medication Dose Route Stop Time Status Admin Acetaminophen 1,000 MG Q6P PRN 09/12 0245 AC N/A 1 UNIT IV Albuterol Sulfate 1 PUF TID PRN 09/12 0230 AC INH Amlodipine Besylate 5 MG DAILY 09/12 0900 AC 09/12 PO 0920 Atorvastatin Calcium 10 MG DAILY 09/12 0900 AC 09/12 PO 0920 Cyclosporine 1 GTT Q12 09/12 0900 AC 09/12 OPH 202 Dextrose/Sodium 1,000 ML Q10H 09/12 0245 AC 09/13 Chloride IV 0238 Dorzolamide HCl 1 GTT BID 09/12 0900 AC 09/12 OPH 0918 Heparin Sodium 5,000 UNIT Q8 09/12 06 AC 09/13 (Porcine) SC 0605 Morphine Sulfate 2 MG Q4P PRN 09/12 0245 AC IV Ondansetron HCl 4 MG Q6P PRN 09/12 0245 AC IV Timolol Maleate 1 GTT BID 09/12 0900 AC 09/12 OPH 2020 Results Last 48 Hours of Labs: Laboratory Tests 09/12 09/12 0840 0315 Chemistry Sodium (137 - 145 mmol/L) 141 Potassium (3.5 - 5.1 mmol/L) 3.7 Chloride (98 - 107 mmol/L) 107 Carbon Dioxide (22 - 30 mmol/L) 24 Anion Gap (5 - 16) 9 BUN (9 - 20 mg/dL) 20 Creatinine (0.7 - 1.2 mg/dL) 1.0 Estimated GFR (>60 ml/min) > 60 BUN/Creatinine Ratio (7 - 25 %) 20.0 Hematology CBC w Diff NO MAN DIFF REQ WBC (4.8 - 10.8 /CUMM) 4.7 L RBC (4.70 - 6.10 /CUMM) 3.98 L Hgb (14.0 - 18.0 G/DL) 12.5 L Hct (42 - 52 %) 36.8 L MCV (80.0 - 94.0 FL) 92.5 MCH (27.0 - 31.0 PG) 31.5 H MCHC (33.0 - 37.0 G/DL) 34.1 RDW (11.5 - 14.5 %) 15.0 H Plt Count (130 - 400 /CUMM) 223 MPV (7.4 - 10.4 FL) 8.3 Gran % (42.2 - 75.2 %) 63.8 Lymphocytes % (20.5 - 51.1 %) 20.0 L Monocytes % (1.7 - 9.3 %) 11.2 H Eosinophils % (0 - 5 %) 4.7 Basophils % (0.0 - 2.0 %) 0.3 Absolute Granulocytes (1.4 - 6.5 /CUMM) 3.0 Absolute Lymphocytes (1.2 - 3.4 /CUMM) 0.9 L Absolute Monocytes (0.10 - 0.60 /CUMM) 0.5 Absolute Eosinophils (0.0 - 0.7 /CUMM) 0.2 Absolute Basophils (0.0 - 0.2 /CUMM) 0 Urines Urine Color (YEL,AMB,STR) YEL Urine Clarity (CLEAR) CLEAR Urine pH (5.0 - 8.0) 6.0 Ur Specific [place] (1.001 - 1.035) 1.010 Urine Protein (NEG,<30 MG/DL) TRACE H Urine Ketones (NEG) NEG Urine Nitrite (NEG) NEG Urine Bilirubin (NEG) NEG Urine Urobilinogen (0.1 - 1.0 EU/dl) 0.2 Ur Leukocyte Esterase (NEG) NEG Ur Microscopic SEDIMENT EXAMINED Ur Epithelial Cells (NONE,FEW) FEW Urine Mucus (FEW,NONE) FEW Urine Hemoglobin (NEG) NEG Urine Glucose (N MG/DL) NEG 09/12 09/12 0234 0005 Chemistry Sodium (137 - 145 mmol/L) Cancelled 140 Potassium (3.5 - 5.1 mmol/L) Cancelled 3.9 Chloride (98 - 107 mmol/L) Cancelled 105 Carbon Dioxide (22 - 30 mmol/L) Cancelled 23 Anion Gap (5 - 16) Cancelled 12 BUN (9 - 20 mg/dL) Cancelled 25 H Creatinine (0.7 - 1.2 mg/dL) Cancelled 1.3 H Estimated GFR (>60 ml/min) 53 L BUN/Creatinine Ratio (7 - 25 %) Cancelled 19.2 Glucose (65 - 99 mg/dL) 120 H Calcium (8.4 - 10.2 mg/dL) 9.3 Total Bilirubin (0.2 - 1.3 mg/dL) 1.1 Direct Bilirubin (< 0.4 mg/dL) 0.2 AST (17 - 59 U/L) 16 L ALT (21 - 72 U/L) 33 Alkaline Phosphatase (< 127 U/L) 55 Troponin I (<0.11 ng/ml) < 0.01 Total Protein (6.3 - 8.2 g/dL) 6.5 Albumin (3.5 - 5.0 g/dL) 4.0 Amylase (30 - 110 U/L) 41 Lipase (23 - 300 U/L) 119 Hematology CBC w Diff NO MAN DIFF REQ WBC (4.8 - 10.8 /CUMM) 5.9 RBC (4.70 - 6.10 /CUMM) 4.24 L Hgb (14.0 - 18.0 G/DL) 13.5 L Hct (42 - 52 %) 39.8 L MCV (80.0 - 94.0 FL) 93.9 MCH (27.0 - 31.0 PG) 32.0 H MCHC (33.0 - 37.0 G/DL) 34.0 RDW (11.5 - 14.5 %) 14.7 H Plt Count (130 - 400 /CUMM) 258 MPV (7.4 - 10.4 FL) 8.9 Gran % (42.2 - 75.2 %) 68.5 Lymphocytes % (20.5 - 51.1 %) 18.4 L Monocytes % (1.7 - 9.3 %) 9.5 H Eosinophils % (0 - 5 %) 3.4 Basophils % (0.0 - 2.0 %) 0.2 Absolute Granulocytes (1.4 - 6.5 /CUMM) 4.1 Absolute Lymphocytes (1.2 - 3.4 /CUMM) 1.1 L Absolute Monocytes (0.10 - 0.60 /CUMM) 0.6 Absolute Eosinophils (0.0 - 0.7 /CUMM) 0.2 Absolute Basophils (0.0 - 0.2 /CUMM) 0 Assessment/Plan Assessment/Plan 82yo male admitted with sbo/umbilical hernia, still softly distended with +bowel sounds await bowel function Encourage ambulation continue npo/ivf for now pain management as needed hep sc/alps for dvt ppx We will discuss with Dr Shanks for recommendations Core Measures Venous Thromboembolism VTE Risk Factors Acute Medical Illness No Mechanical VTE Prophylaxis d/t N/A MechProphylax Ordered No VTE Pharm Prophylaxis d/t NA PharmProphylax ordered
[2017-09-13 11:55] LABS: ABSOLUTE BASOPHIL COUNT 0 /CUMM (0.0-0.2); ABSOLUTE EOSINOPHIL COUNT 0.2 /CUMM (0.0-0.7); ABSOLUTE GRANULOCYTE CT 3.4 /CUMM (1.4-6.5); ABSOLUTE LYMPH COUNT 0.7 /CUMM (1.2-3.4); ABSOLUTE MONOCYTE COUNT 0.5 /CUMM (0.10-0.60); BASOPHIL % 0.2 % (0.0-2.0); EOSINOPHIL % 4.1 % (0-5); GRANULOCYTE % 71.6 % (42.2-75.2); HEMATOCRIT 38.2 % (42-52); MEAN CORPUSCULAR HGB 31.6 PG (27.0-31.0); MEAN CORPUSCULAR HGB CONC 33.9 G/DL (33.0-37.0); MEAN CORPUSCULAR VOLUME 93.2 FL (80.0-94.0); MEAN PLATELET VOLUME 8.1 FL (7.4-10.4); PLATELET COUNT 228 /CUMM (130-400); RBC DISTRIBUTION WIDTH 14.9 % (11.5-14.5); WHITE BLOOD CELL COUNT 4.8 /CUMM (4.8-10.8)
--- NOTE | 2017-09-13 14:06 | PN- General Surgery ---
Subjective Subjective: Follow-up of bowel obstruction from incarcerated umbilical hernia which has been reduced, he says he feels better still has some periumbilical tenderness but no vomiting no nausea and has not passed gas yet he has been ambulating not really hungry no fevers or sweats or chest pain or shortness of breath Objective Vital Signs and I&Os I reviewed Vital Signs Date Time Temp Pulse Resp B/P B/P Pulse O2 O2 Flow FiO2 Mean Ox Delivery Rate 09/14 619 98.0 76 18 128/74 94 Room Air 09/12 2136 98.4 68 18 146/80 96 09/12 1422 97.8 62 20 144/78 97 I reviewed Intake & Output 09/13 1600 09/13 0809/13 0000 09/12 1600 09/12 0800 09/12 0000 Intake Total 600 313 601 8698 Output Total 400 850 725 300 Balance 200 -550 -25 1100 Intake, IV 600 637 746 5928 Intake, Oral 0 0 100 0 Number 250 Bowel Movements Output, Urine 400 850 725 300 Patient 180 lb Weight Weight Bed scale Measurement Method Physical Exam: Constitutional: no acute distress no pain Eyes: sclera anicteric ENMT: moist mucous membranes Cardiovascular: S1-S2 no murmurs no peripheral edema Respiratory: clear to auscultation with normal respiratory effort and no intercostal retractions GI: abdomen soft nontender nondistended ventral defect is clear Extremities / lymphatics: free range of motion no peripheral edema Skin: no jaundice no rashes warm, nondiaphoretic Psychiatric: mood and affect are appropriate and alert and oriented to person place and time Current Medications: I reviewed Current Medications Sig/Mark Start time Last Medication Dose Route Stop Time Status Admin Acetaminophen 1,000 MG Q6P PRN 09/12 0245 AC N/A 1 UNIT IV Albuterol Sulfate 1 PUF TID PRN 09/12 0230 AC INH Amlodipine Besylate 5 MG DAILY 09/12 899 AC 09/13 PO 1033 Atorvastatin Calcium 10 MG DAILY 09/12 899 AC 09/13 PO 1033 Cyclosporine 1 GTT Q12 09/12 899 AC 09/13 OPH 1033 Dextrose/Sodium 1,000 ML Q10H 09/12 0245 AC 09/13 Chloride IV 0238 Dorzolamide HCl 1 GTT BID 09/12 899 AC 09/13 OPH 1033 Heparin Sodium 5,000 UNIT Q8 09/12 0600 AC 09/13 (Porcine) SC 0605 Ketorolac 15 MG Q12P PRN 09/13 0830 AC 09/13 Tromethamine IV 1033 Morphine Sulfate 2 MG Q4P PRN 09/12 024 AC IV Ondansetron HCl 4 MG Q6P PRN 09/12 0245 AC IV Timolol Maleate 1 GTT BID 09/12 0900 AC 09/12 OPH 2020 Results Last 48 Hours of Labs: I reviewed Laboratory Tests 09/13 09/13 09/12 1137 1007 0840 Chemistry Sodium (137 - 145 mmol/L) 140 141 Potassium (3.5 - 5.1 mmol/L) 4.1 3.7 Chloride (98 - 107 mmol/L) 108 H 107 Carbon Dioxide (22 - 30 mmol/L) 21 L 24 Anion Gap (5 - 16) 11 9 BUN (9 - 20 mg/dL) 14 20 Creatinine (0.7 - 1.2 mg/dL) 1.0 1.0 Estimated GFR (>60 ml/min) > 60 > 60 BUN/Creatinine Ratio (7 - 25 %) 14.0 20.0 Hematology CBC w Diff NO MAN DIFF REQ WBC (4.8 - 10.8 /CUMM) 4.8 4.7 L RBC (4.70 - 6.10 /CUMM) 4.10 L 3.98 L Hgb (14.0 - 18.0 G/DL) 13.0 L 12.5 L Hct (42 - 52 %) 38.2 L 36.8 L MCV (80.0 - 94.0 FL) 93.2 92.5 MCH (27.0 - 31.0 PG) 31.6 H 31.5 H MCHC (33.0 - 37.0 G/DL) 33.9 34.1 RDW (11.5 - 14.5 %) 14.9 H 15.0 H Plt Count (130 - 400 /CUMM) 228 223 MPV (7.4 - 10.4 FL) 8.1 8.3 Gran % (42.2 - 75.2 %) 71.6 63.8 Lymphocytes % (20.5 - 51.1 %) 13.9 L 20.0 L Monocytes % (1.7 - 9.3 %) 10.2 H 11.2 H Eosinophils % (0 - 5 %) 4.1 4.7 Basophils % (0.0 - 2.0 %) 0.2 0.3 Absolute Granulocytes (1.4 - 6.5 /CUMM) 3.4 3.0 Absolute Lymphocytes (1.2 - 3.4 /CUMM) 0.7 L 0.9 L Absolute Monocytes (0.10 - 0.60 /CUMM) 0.5 0.5 Absolute Eosinophils (0.0 - 0.7 /CUMM) 0.2 0.2 Absolute Basophils (0.0 - 0.2 /CUMM) 0 0 09/12 09/12 0315 0234 Chemistry Sodium Cancelled Potassium Cancelled Chloride Cancelled Carbon Dioxide Cancelled Anion Gap Cancelled BUN Cancelled Creatinine Cancelled BUN/Creatinine Ratio Cancelled Urines Urine Color (YEL,AMB,STR) YEL Urine Clarity (CLEAR) CLEAR Urine pH (5.0 - 8.0) 6.0 Ur Specific [place] (1.001 - 1.035) 1.010 Urine Protein (NEG,<30 MG/DL) TRACE H Urine Ketones (NEG) NEG Urine Nitrite (NEG) NEG Urine Bilirubin (NEG) NEG Urine Urobilinogen (0.1 - 1.0 EU/dl) 0.2 Ur Leukocyte Esterase (NEG) NEG Ur Microscopic SEDIMENT EXAMINED Ur Epithelial Cells (NONE,FEW) FEW Urine Mucus (FEW,NONE) FEW Urine Hemoglobin (NEG) NEG Urine Glucose (N MG/DL) NEG 09/12 0005 Chemistry Sodium (137 - 145 mmol/L) 140 Potassium (3.5 - 5.1 mmol/L) 3.9 Chloride (98 - 107 mmol/L) 105 Carbon Dioxide (22 - 30 mmol/L) 23 Anion Gap (5 - 16) 12 BUN (9 - 20 mg/dL) 25 H Creatinine (0.7 - 1.2 mg/dL) 1.3 H Estimated GFR (>60 ml/min) 53 L BUN/Creatinine Ratio (7 - 25 %) 19.2 Glucose (65 - 99 mg/dL) 120 H Calcium (8.4 - 10.2 mg/dL) 9.3 Total Bilirubin (0.2 - 1.3 mg/dL) 1.1 Direct Bilirubin (< 0.4 mg/dL) 0.2 AST (17 - 59 U/L) 16 L ALT (21 - 72 U/L) 33 Alkaline Phosphatase (< 127 U/L) 55 Troponin I (<0.11 ng/ml) < 0.01 Total Protein (6.3 - 8.2 g/dL) 6.5 Albumin (3.5 - 5.0 g/dL) 4.0 Amylase (30 - 110 U/L) 41 Lipase (23 - 300 U/L) 119 Hematology CBC w Diff NO MAN DIFF REQ WBC (4.8 - 10.8 /CUMM) 5.9 RBC (4.70 - 6.10 /CUMM) 4.24 L Hgb (14.0 - 18.0 G/DL) 13.5 L Hct (42 - 52 %) 39.8 L MCV (80.0 - 94.0 FL) 93.9 MCH (27.0 - 31.0 PG) 32.0 H MCHC (33.0 - 37.0 G/DL) 34.0 RDW (11.5 - 14.5 %) 14.7 H Plt Count (130 - 400 /CUMM) 258 MPV (7.4 - 10.4 FL) 8.9 Gran % (42.2 - 75.2 %) 68.5 Lymphocytes % (20.5 - 51.1 %) 18.4 L Monocytes % (1.7 - 9.3 %) 9.5 H Eosinophils % (0 - 5 %) 3.4 Basophils % (0.0 - 2.0 %) 0.2 Absolute Granulocytes (1.4 - 6.5 /CUMM) 4.1 Absolute Lymphocytes (1.2 - 3.4 /CUMM) 1.1 L Absolute Monocytes (0.10 - 0.60 /CUMM) 0.6 Absolute Eosinophils (0.0 - 0.7 /CUMM) 0.2 Absolute Basophils (0.0 - 0.2 /CUMM) 0 Assessment/Plan Assessment/Plan Impression is resolving bowel obstruction from an incarcerated ventral hernia that was reduced preferably he can regain bowel function and be scheduled electively but he still has a little bit of tenderness and hasn't passed gas may be there is edema where this was stuck so we will get a multiview x-ray now to to see if small bowel is still really dilated. Problem List: 1. SBO (small bowel obstruction) 2. Ventral incisional hernia with obstruction Core Measures Venous Thromboembolism VTE Risk Factors Acute Medical Illness No Mechanical VTE Prophylaxis d/t N/A MechProphylax Ordered No VTE Pharm Prophylaxis d/t NA PharmProphylax ordered
[2017-09-13 14:36] VITALS: BP 138/70
--- NOTE | 2017-09-13 17:28 | RADIOLOGY REPORT ---
EXAMINATION: XR ABDOMEN MULTIPLE VIEWS CLINICAL INDICATION: Abdominal pain COMPARISON: 09/12/2017 CT scan abdomen pelvis TECHNIQUE: 2 views of the abdomen. FINDINGS: The bowel gas pattern is nonobstructive. There is no free intra-abdominal air. There is no abnormal bowel wall thickening. The properitoneal fat lines are preserved. There is paucity of small bowel gas, which can be due to fluid-filled small bowel loops. There are right upper quadrant surgical gómez, represent prior cholecystectomy. There are bridging osteophytes at lumbar levels, the most prominent is at the left L4-L5. IMPRESSION: No x-ray evidence of bowel obstruction.
[2017-09-13 22:20] VITALS: BP 124/80
[2017-09-14 06:47] VITALS: BP 132/76
--- NOTE | 2017-09-14 08:00 | PN- Student ---
Subjective Subjective: Improved abdominal pain, mainly gone now. No nausea, no vomiting. Had 1 bowel movement, but no flatus. No appetite. OOB. Making Urine. No chest pain, no shortness of breath, no calf pain. Objective Objective: Vitals: Temp: 98.2 = Tcurrent=Tmax Pulse Rate: 72 Respiratory Rate: 20 BP: 132/76 Pulse Ox 92% I/O's I: 600 IV 8hrs O: not recorded Imaging: No x-ray evidence of bowel obstruction Physical Exam: General: no acute distress. alert and oriented. Pulm: clear to auscultation Cardio: s1,s2, RRR Abdomen: soft, obese, + bowel sounds, RUQ tenderness Extremities: calves soft and non tender bilaterally, 2+ dp/pt pulses Results Results: Laboratory Tests 09/13/17 1137: RBC 4.10 L, MCV 93.2, MCH 31.6 H, MCHC 33.9, RDW 14.9 H, MPV 8.1, Gran % 71.6 , Lymphocytes % 13.9 L, Monocytes % 10.2 H, Eosinophils % 4.1, Basophils % 0.2 , Absolute Granulocytes 3.4, Absolute Lymphocytes 0.7 L, Absolute Monocytes 0.5 , Absolute Eosinophils 0.2, Absolute Basophils 0 09/13/17 1007: Anion Gap 11, Estimated GFR > 60, BUN/Creatinine Ratio 14.0 09/12/17 0840: Anion Gap 9, Estimated GFR > 60, BUN/Creatinine Ratio 20.0, CBC w Diff NO MAN DIFF REQ, RBC 3.98 L, MCV 92.5, MCH 31.5 H, MCHC 34.1, RDW 15.0 H, MPV 8.3, Gran % 63.8, Lymphocytes % 20.0 L, Monocytes % 11.2 H, Eosinophils % 4.7, Basophils % 0.3, Absolute Granulocytes 3.0, Absolute Lymphocytes 0.9 L, Absolute Monocytes 0.5, Absolute Eosinophils 0.2, Absolute Basophils 0 09/12/17 0315: Urine Color YEL, Urine Clarity CLEAR, Urine pH 6.0, Ur Specific [place] 1.010, Urine Protein TRACE H, Urine Ketones NEG, Urine Nitrite NEG, Urine Bilirubin NEG, Urine Urobilinogen 0.2, Ur Leukocyte Esterase NEG, Ur Microscopic SEDIMENT EXAMINED, Ur Epithelial Cells FEW, Urine Mucus FEW, Urine Hemoglobin NEG, Urine Glucose NEG 09/12/17 0234: Sodium Cancelled, Potassium Cancelled, Chloride Cancelled, Carbon Dioxide Cancelled, Anion Gap Cancelled, BUN Cancelled, Creatinine Cancelled, BUN/ Creatinine Ratio Cancelled 09/12/17 0005: Anion Gap 12, Estimated GFR 53 L, BUN/Creatinine Ratio 19.2, Glucose 120 H, Calcium 9.3, Total Bilirubin 1.1, Direct Bilirubin 0.2, AST 16 L, ALT 33, Alkaline Phosphatase 55, Troponin I < 0.01, Total Protein 6.5, Albumin 4.0, Amylase 41, Lipase 119, CBC w Diff NO MAN DIFF REQ, RBC 4.24 L, MCV 93.9, MCH 32.0 H, MCHC 34.0, RDW 14.7 H, MPV 8.9, Gran % 68.5, Lymphocytes % 18.4 L, Monocytes % 9.5 H, Eosinophils % 3.4, Basophils % 0.2, Absolute Granulocytes 4.1, Absolute Lymphocytes 1.1 L, Absolute Monocytes 0.6, Absolute Eosinophils 0.2, Absolute Basophils 0 Assessment/Plan Assessment: 82 yearl old male hospital day 2 with hernia and small bowel obstruction. Improved with a return of bowel function and no evidence of obstruction on abdominal xray. Plan: Continue conservative management advance diet encourage OOB IV fluids Toradol, morphine, acetaminophen prn pain zofran prn nausea DVT prophylaxis Continue home meds review pending labs
--- NOTE | 2017-09-14 12:23 | PN- General Surgery ---
Subjective Subjective: Following up small bowel obstruction from incarcerated umbilical ventral incisional hernia that was reduced He says he still has a little bit of soreness but no new pain he had a small bowel movement he's passing gas, no nausea no vomiting no hiccups no belching no sweats no chest pain. Objective Vital Signs and I&Os I rev Vital Signs Date Time Temp Pulse Resp B/P B/P Pulse O2 O2 Flow FiO2 Mean Ox Delivery Rate 09/14 0858 72 132/76 09/14 0647 98.2 72 20 132/76 92 Room Air 09/13 2220 98.2 66 16 124/80 94 09/13 1436 97.8 81 16 138/70 95 Room Air I rev Intake & Output 09/14 1600 09/14 0809/14 0000 09/13 1600 09/13 0809/13 0000 Intake Total 600 0 700 600 300 Output Total 400 850 Balance 600 0 700 200 -550 Intake, IV 600 600 600 300 Intake, Oral 0 0 100 0 0 Number 0 Bowel Movements Output, Urine 400 850 Patient 174 lb 174 lb Weight Weight Bed scale Measurement Method Physical Exam: Constitutional: no acute distress no pain Eyes: sclera anicteric ENMT: moist mucous membranes Cardiovascular: S1-S2 no murmurs no peripheral edema Respiratory: clear to auscultation with normal respiratory effort and no intercostal retractions GI: abdomen soft nontender nondistended, hernia reduced Extremities / lymphatics: free range of motion no peripheral edema Skin: no jaundice no rashes warm, nondiaphoretic Psychiatric: mood and affect are appropriate and alert and oriented to person place and time Current Medications: I rev Current Medications Sig/Mark Start time Last Medication Dose Route Stop Time Status Admin Acetaminophen 1,000 MG Q6P PRN 09/12 0245 AC N/A 1 UNIT IV Albuterol Sulfate 1 PUF TID PRN 09/12 0230 AC INH Amlodipine Besylate 5 MG DAILY 09/12 899 AC 09/14 PO 0858 Atorvastatin Calcium 10 MG DAILY 09/12 899 AC 09/14 PO 0858 Cyclosporine 1 GTT Q12 09/12 899 AC 09/14 OPH 0856 Dextrose/Sodium 1,000 ML Q10H 09/12 0245 AC 09/14 Chloride IV 0949 Dorzolamide HCl 1 GTT BID 09/12 899 AC 09/14 OPH 0855 Heparin Sodium 5,000 UNIT Q8 09/12 0600 AC 09/14 (Porcine) SC 0632 Ketorolac 15 MG Q12P PRN 09/13 0830 AC 09/14 Tromethamine IV 0948 Morphine Sulfate 2 MG Q4P PRN 09/12 0245 AC IV Ondansetron HCl 4 MG Q6P PRN 09/12 0245 AC IV Patient Medication 1 ED ONE ONE 09/14 1015 DC Teaching ED 09/14 1016 Timolol Maleate 1 GTT BID 09/12 09 AC 09/13 OPH 2102 Results Last 48 Hours of Labs: I reviewed Laboratory Tests 09/14 09/13 09/13 0750 1137 1007 Chemistry Sodium (137 - 145 mmol/L) 141 140 Potassium (3.5 - 5.1 mmol/L) 3.8 4.1 Chloride (98 - 107 mmol/L) 108 H 108 H Carbon Dioxide (22 - 30 mmol/L) 23 21 L Anion Gap (5 - 16) 10 11 BUN (9 - 20 mg/dL) 13 14 Creatinine (0.7 - 1.2 mg/dL) 1.0 1.0 Estimated GFR (>60 ml/min) > 60 > 60 BUN/Creatinine Ratio (7 - 25 %) 13.0 14.0 Hematology WBC (4.8 - 10.8 /CUMM) 4.8 RBC (4.70 - 6.10 /CUMM) 4.10 L Hgb (14.0 - 18.0 G/DL) 13.0 L Hct (42 - 52 %) 38.2 L MCV (80.0 - 94.0 FL) 93.2 MCH (27.0 - 31.0 PG) 31.6 H MCHC (33.0 - 37.0 G/DL) 33.9 RDW (11.5 - 14.5 %) 14.9 H Plt Count (130 - 400 /CUMM) 228 MPV (7.4 - 10.4 FL) 8.1 Gran % (42.2 - 75.2 %) 71.6 Lymphocytes % (20.5 - 51.1 %) 13.9 L Monocytes % (1.7 - 9.3 %) 10.2 H Eosinophils % (0 - 5 %) 4.1 Basophils % (0.0 - 2.0 %) 0.2 Absolute Granulocytes (1.4 - 6.5 /CUMM) 3.4 Absolute Lymphocytes (1.2 - 3.4 /CUMM) 0.7 L Absolute Monocytes (0.10 - 0.60 /CUMM) 0.5 Absolute Eosinophils (0.0 - 0.7 /CUMM) 0.2 Absolute Basophils (0.0 - 0.2 /CUMM) 0 Assessment/Plan Assessment/Plan Impression is resolving bowel obstruction from incarcerated ventral incisional umbilical hernia hopefully he will tolerate diet we will advance her surgical perspective I prefer to get him discharged and then approach to selectively we can discuss with him and his family in the office. Problem List: 1. SBO (small bowel obstruction) 2. Ventral incisional hernia with obstruction Core Measures Venous Thromboembolism VTE Risk Factors Acute Medical Illness No Mechanical VTE Prophylaxis d/t N/A MechProphylax Ordered No VTE Pharm Prophylaxis d/t NA PharmProphylax ordered
[2017-09-14 14:01] VITALS: BP 132/70
[2017-09-14 22:20] VITALS: BP 128/80
[2017-09-15 05:53] VITALS: BP 112/62
[2017-09-15 08:35] VITALS: BP 112/62
--- NOTE | 2017-09-15 09:22 | Patient Discharge Instructions ---
Discharge Instructions General Discharge Information You were seen/treated for: PERTIAL SMALL BOWEL INSTRUCTION, VENTRAL HERNIA You had these procedures: NONE Watch for these problems: INCREASED NAUSEA AND VOMITING WITH MEALS, INCREASED ABDOMINAL PAIN Diet Continue normal diet: No Recommended Diet: Low Residue Acute Coronary Syndrome Inclusion Criteria At DC or during hospital stay patient has or had the following: ACS DIAGNOSIS No Discharge Core Measures Meds if any: Prescribed or Continued at Discharge Meds if any: NOT Prescribed or Continued at Discharge Congestive Heart Failure Inclusion Criteria At DC or during hospital stay patient has or had the following: CHF DIAGNOSIS No Discharge Core Measures Meds if any: Prescribed or Continued at Discharge Meds if any: NOT Prescribed or Continued at Discharge Cerebrovascular accident Inclusion Criteria At DC or during hospital stay patient has or had the following: CVA/TIA Diagnosis No Discharge Core Measures Meds if any: Prescribed or Continued at Discharge Meds if any: NOT Prescribed or Continued at Discharge Venous thromboembolism Inclusion Criteria VTE Diagnosis No VTE Type NONE VTE Confirmed by (Test) NONE Discharge Core Measures - Per Current guidelines, there needs to be overlap - treatment for the first 5 days of Warfarin therapy. - If discharged on Warfarin prior to 5 days of - overlap therapy, the patient will need to be - assessed for post discharge needs including - *Post discharge parental anticoagulation - *Warfarin and/or parental anticoagulation education - *Follow up date to check INR post discharge At least 5 days overlap therapy as Inpatient No Meds if any: Prescribed or Continued at Discharge Note: Overlap Therapy is Warfarin and Anticoagulant Meds if any: NOT Prescribed or Continued at Discharge
--- NOTE | 2017-09-15 09:29 | PN- General Surgery ---
Subjective Subjective: HD#4 PARTIAL SBO/REDUCIBLE VENTRAL HERNIA FELING MUCH BETTER TODAY DENIES CP, SOB, MILD NAUSEA LESS PAIN IS HUNGRY AND WANTS TO GO HOME. Objective Vital Signs and I&Os Vital Signs Date Time Temp Pulse Resp B/P B/P Pulse O2 O2 Flow FiO2 Mean Ox Delivery Rate 09/15 0835 70 112/62 09/15 0553 98.3 70 20 112/62 95 Room Air 09/14 2220 97.7 67 18 128/80 96 09/14 1401 97.6 70 20 132/70 97 Room Air Intake & Output 09/15 1600 09/15 0800 09/15 0000 09/14 1600 09/14 0800 09/14 0000 Intake Total 3971 387 3704 600 0 Output Total Balance 3914 773 3059 600 0 Intake, IV 600 600 600 600 Intake, Oral 480 360 600 0 0 Number 0 0 Bowel Movements Patient 174 lb 174 lb 174 lb Weight Weight Bed scale Measurement Method Physical Exam: CV: RRR LUNGS: CLEAR ABD: DISTENDED, +BS MLD TENDERNESS TO RUQ PALP NO GUARDING NO UMBILICAL PRESENT EXT:WARM, NO CALF TENDERNESS Assessment/Plan Assessment/Plan SURGICAL STABLE PLAN DISCUSSED CASE WITH DR ZACARIAS [facility] TO D/C HOME F/U IN OFFICE TO SCHEDULE ELECTIVE SURGERY OK FOR LOW RESIDUE AT HOME Core Measures Venous Thromboembolism VTE Risk Factors Acute Medical Illness No Mechanical VTE Prophylaxis d/t N/A MechProphylax Ordered No VTE Pharm Prophylaxis d/t NA PharmProphylax ordered
== END 2017-09-15 09:41 | DRG 394 ==
LOC: ERH 23:39 → ERHI 09-12 02:34 → 2NA 09-12 02:34 → ENRESERV 09-12 02:44 → 2NA 09-12 03:19
PROVIDERS: Pediatrics; Physician Assistant; Physician Assistant Surgical
DX: K43.0 Incisional hernia with obstruction, without gangrene (principal); K56.600 Partial intestinal obstruction, unspecified as to cause; K56.690 Other partial intestinal obstruction; I10 Essential (primary) hypertension; E78.5 Hyperlipidemia, unspecified; J45.909 Unspecified asthma, uncomplicated; Z85.038 Personal history of other malignant neoplasm of large intestine; Z90.49 Acquired absence of other specified parts of digestive tract; Z79.891 Long term (current) use of opiate analgesic; Z79.51 Long term (current) use of inhaled steroids
CPT/HCPCS: 2NAP; 36415; 36592; 74021; 74176; 81001; 82436; 93005; 93010; 96361; 96374; J0131; J1644; J2405; J3490; J7042

== ENCOUNTER 2017-10-08 02:56 | Observation (INO) | payer OTHER ==
[~2017-10-08] VITALS: Ht 172.7 cm; Wt 81.6 kg
[2017-10-08] MEDS ORDERED: OXYCODONE-ACET1 EACH PO (13:53)
--- NOTE | 2017-10-08 17:51 | Admission Core Measures ---
Acute Coronary Syndrome (CM) ACS Core Measures Acute Coronary Syndrome Diagnosis No Congestive Heart Failure (NEW) CHF Core Measures Congestive Heart Failure Diagnosis No Cerebrovascular Accident CVA Core Measures CVA/TIA Diagnosis No Venous Thromboembolism VTE Core [place] (View Protocol) VTE Risk Factors Surgery No Mechanical VTE Prophylaxis d/t N/A MechProphylax Ordered No VTE Pharm Prophylaxis d/t NA PharmProphylax ordered Problem List As ranked by this Provider includes Assessment & Plan 1. Ventral incisional hernia with obstruction HOME MEDS Home Med List Albuterol Sulfate (Ventolin Hfa) 90 MCG HFA.AER.AD 1 PUF INH TID PRN RESP. ( Reported) Amlodipine Besylate 5 MG TABLET 1 TAB PO DAILY htn (Reported) Atorvastatin Calcium 10 MG TABLET 1 TAB PO DAILY CHOLESTEROL (Reported) Cyclosporine (Restasis) 0.05 % DROPERETTE 1 GTT OU BID BOTH EYES (Reported) Dorzolamide HCl/Timolol Maleat (Dorzolamide-Timolol Eye Drops) 22.3 MG-6.8 MG/ML DROPS 1 GTT OU BID BOTH EYES (Reported) Ergocalciferol (Vitamin D2) (Vitamin D2) 50,000 UNIT CAPSULE 1 CAP PO QW SUPPLEMENT (Reported) Guaifenesin 100 MG/5 ML LIQUID 10 ML PO Q6P PRN COUGH Naproxen 500 MG TABLET 1 TAB PO BID PAIN/INFLAMMATION (Reported) Nystatin 100,000 UNIT/GRAM CREAM..G. 1 LATOSHA TOP BID Fungal infection Oxycodone HCl/Acetaminophen (Oxycodone-Acetaminophen 10-325) 10 MG-325 MG TABLET 1 TAB PO 4XDAILY PRN PAIN (Reported) Oxycodone HCl/Acetaminophen (Oxycodone-Acetaminophen 5-325) 5 MG-325 MG TABLET 1 TAB PO Q4-6 PRN PAIN CONTROL
[2017-10-08 21:57] VITALS: BP 118/68
[2017-10-09 07:01] VITALS: BP 118/60
--- NOTE | 2017-10-09 07:35 | PN- General Surgery ---
See Addendum Subjective Subjective: PATIENT SLEEPING WITH NO COMPLAINTS. COMFORTABLE, REQUIRED NO PAIN MEDS OVERNIGHT. Objective Vital Signs and I&Os Vital Signs Date Time Temp Pulse Resp B/P B/P Pulse O2 O2 Flow FiO2 Mean Ox Delivery Rate 10/09 0701 98.1 74 20 118/60 94 Room Air 10/08 2157 98.0 75 20 118/68 94 Room Air 10/08 2102 Room Air Intake & Output 10/09 0810/09 1600 10/08 0810/08 0000 10/07 1600 Intake Total 600 187.5 Output Total 950 1000 Balance -350 -812.5 Intake, IV 600 187.5 Output, Urine 950 1000 Patient 180 lb 180 lb Weight Physical Exam: VSS AEBRILE THIS MORNING ALERT AND ORIENTED CHEST -SUBQ EMPHASEMA THROUGHTOUT CTA SYMMETRIC HEART-RRR ABDOMEN -PORTAL SITES CDI WITHOUT DRAINAGE TENDER THROUGHOUT, POS BS BILATERAL LOWER EXTREMITIES - CALVES SOFT DISTAL PULSES INTACT Assessment/Plan Assessment/Plan POD 1 VENTRAL HERNIA REPAIR OOB AMBULATING PLAN TO D/C THIS MORNING ADVANCE DIET TO REGULAR Core Measures Venous Thromboembolism VTE Risk Factors Surgery No Mechanical VTE Prophylaxis d/t N/A MechProphylax Ordered No VTE Pharm Prophylaxis d/t NA PharmProphylax ordered
[2017-10-09] MEDS ORDERED: PERCOCET 5-3251 EACH PO (07:38)
--- NOTE | 2017-10-09 07:45 | Patient Discharge Instructions ---
Discharge Instructions General Discharge Information You were seen/treated for: ventral, incisional hernia You had these procedures: robotic ventral hernia repair Watch for these problems: fevers, chills, wound drainage, shortness of breath, nausea or vomiting Call Surgeon to remove: wound check Do not soak the wound: No Daily wet to dry dressings: No No bath, but you may shower: Yes Other wound care: keep wounds clean dry and intact cover portals with occlusive dressings for showers Diet Continue normal diet: Yes Activity Full Activity/No Limits: No Activity Self Limited: Yes Other activity limits: no strenuous activities Acute Coronary Syndrome Inclusion Criteria At DC or during hospital stay patient has or had the following: ACS DIAGNOSIS No Discharge Core Measures Meds if any: Prescribed or Continued at Discharge Meds if any: NOT Prescribed or Continued at Discharge Congestive Heart Failure Inclusion Criteria At DC or during hospital stay patient has or had the following: CHF DIAGNOSIS No Discharge Core Measures Meds if any: Prescribed or Continued at Discharge Meds if any: NOT Prescribed or Continued at Discharge Cerebrovascular accident Inclusion Criteria At DC or during hospital stay patient has or had the following: CVA/TIA Diagnosis No Discharge Core Measures Meds if any: Prescribed or Continued at Discharge Meds if any: NOT Prescribed or Continued at Discharge Venous thromboembolism Inclusion Criteria VTE Diagnosis No VTE Type NONE VTE Confirmed by (Test) NONE Discharge Core Measures - Per Current guidelines, there needs to be overlap - treatment for the first 5 days of Warfarin therapy. - If discharged on Warfarin prior to 5 days of - overlap therapy, the patient will need to be - assessed for post discharge needs including - *Post discharge parental anticoagulation - *Warfarin and/or parental anticoagulation education - *Follow up date to check INR post discharge At least 5 days overlap therapy as Inpatient No Meds if any: Prescribed or Continued at Discharge Note: Overlap Therapy is Warfarin and Anticoagulant Meds if any: NOT Prescribed or Continued at Discharge
[2017-10-09 08:15] VITALS: BP 110/64
--- NOTE | 2017-10-12 18:16 | Operative Report ---
Operative/Inv Procedure Report Surgery Date: 10/08/17 Name of Procedure: Robotic laparoscopic mesh repair of incarcerated ventral incisional hernia Pre-Operative Diagnosis: Incarcerated ventral incisional hernia Post-Operative Diagnosis: Same Estimated Blood Loss: scant Surgeon/Egg Grader: Rimma DWYER,Sushant NEGRON Anesthesia: general endotracheal tube Operative/Procedure Note Note: Patient was positioned supine on the table. After successful induction of general anesthesia the abdomen was clipped prepped and draped in usual sterile fashion. The abdominal skin is marked to guide where the mesh will lay, centered under the defect, and where the 3 8 mm robotic trochars will be positioned, centered in the left anterior axillary line between the ribs and the iliac crest. After injection of local anesthetic at a spot in the mid to lateral left subcostal area, a horizontal 1 cm incision was made with a 15 blade. Using the plastic pointed-tipped translucent 8 mm with a metal robotic trocar and the camera inserted, the abdominal wall was traversed through this incision, watching on the screen, as the trocar passes through the layers, alternating colors, yellow fat white fascia red muscle, until the tip just seems to rose the inner thin peritoneal layer. At that point, I stop pushing and check if it's open by turning on the gas. If the belly insufflates then you know you can advance that large trocar into an empty space more directly without injuring the viscera. The gas was turned on to 15 mm. At this point you can see the umbilical ventral defect, the incarcerated fat and omentum was reduced. Next the 2 remaining 8 mm robotic trochars are placed one in the mid abdomen axillary line as mentioned in one lower down above the iliac crest. The robot then is brought to the patient attached docked and targeted. Then on the near side a peritoneal flap is started by scoring it measuring roughly 6 cm from the defect towards the left first scoring the peritoneum in a vertical line and then completing the incision with cautery keeping the flap thin, but here in him the peritoneal layer was so thin we thickened it by including some of the transversalis fascia and as we approached the midline we were limited even more because of the scar from previous surgery which had fused the linea alba to the dermis including at the fascial defect so as we proceeded medially we entered the retrorectus plane paying particular care to not injure any main vessels, and continuing that flap across to the right past the defect also on that side at least 6 cm, the defect was approximately 2. In the midline because of prior surgery and scarring the linea alba was "widened" and fused to the dermis so in this area we exited the left medial posterior rectus sheath reduced the peritoneal sac and then reentered the medial rectus sheath on the right and continued laterally to complete the flap. This defect was then closed with a running continuous 0 V lock, absorbable, but the closure was longer to include remnants of fascia fused to the dermis above and below the defect. We then chose a Velcro type of mesh not coated sized it to 12 cm marked the rough surface rolled up like a scroll and stuffed down one of the trochars centered it over the defect on the near side there was one part that was growing a little bit we tacked that down into place with interrupted 3-0 Vicryl suture otherwise the mesh laid nicely and flat we had stopped corners to prevent curling it fit well within the flap that we had created and then we closed the flap that vertical line on the near side with a running 2-0 V lock suture. Also the attenuated hernia sac had a small defect in it while taking it down and we closed that as well straightforward 3-0 Vicryl suture. Next we checked for hemostasis and then undocked letting the gas escape pulling out the instruments and the trochars these 3 incisions were small there was no fascial closure needed and we then closed the skin with subcuticular 4-0 Monocryl, and then Mastisol, Steri-Strips and Band-Aids. Overall estimated blood loss was minimal, lap and sponge counts were correct, wound expectancy was clean, IV fluids crystalloid, complications none, patient tolerated the procedure well, did not significantly francis during extubation and was returned to the recovery room in satisfactory condition.
== END 2017-10-09 11:00 ==
LOC: STS 02:56 → PACUH 17:18 → ENRESERV 17:40 → ENTRNSPT 18:13 → EDTRNSPT 18:40 → EDTRNSPTSTS 18:40 → 2NA 18:47 → CMPTRNSPT 19:02 → ENPENDDIS 10-09 07:45 → 2NA 10-09 11:00
DX: K43.0 Incisional hernia with obstruction, without gangrene (principal); I10 Essential (primary) hypertension; J45.909 Unspecified asthma, uncomplicated; Z87.891 Personal history of nicotine dependence; Z85.028 Personal history of other malignant neoplasm of stomach
CPT/HCPCS: 49655; 64488; S2900; 1255; 6030; 96372; C1781; G0378; J0131; J0690; J1200; J1644; J2250; J2405; J3490; J7042